=== PATIENT | female | born 1985 | race Caucasian/White ===

== ENCOUNTER 2017-10-22 03:19 | Inpatient (IN) | payer BC, OTHER ==
[2017-10-22] MEDS ORDERED: MORPHINE SULFATE 4 MG INJ IV ONE ×2 (04:01→06:49)
[2017-10-22] MEDS ORDERED: Zofran 4 MG/2 ML VIAL IV ONE (04:01)
[2017-10-22] MEDS ORDERED: Sodium Chloride 0.9% 1000 ML 1,000 ML IV STA (04:01)
[2017-10-22] MEDS ORDERED: Zofran 4 MG/2 ML VIAL ONE (04:07)
[2017-10-22] MEDS ORDERED: Sodium Chloride 0.9% 1000 ML 1,000 ML ONE (04:07)
[2017-10-22] MEDS ORDERED: MORPHINE SULFATE 4 MG INJ ONE ×2 (04:07→06:50)
--- NOTE | 2017-10-22 04:09 | ERPHSYRPT ---
- History of Present Illness Time Seen by Provider: 10/22/17 03:47 Historian: patient Exam Limitations: no limitations Patient Subjective Stated Complaint: pt states she has been having rt side abd pain for the last week, increasing tonight. Triage Nursing Assessment: pt alert and oriented, asnwers questions approp. pt ambulatory with slow stooped gait ntoed.respirations nonlabored with lungs cta. abd soft, nontender to light palpation. bowel sounds hypo. Physician History: Pt has been c/o diffuse abdominal pain, nausea x 1 week, constipated, had small bowel movement 2 days ago. She started c/o more severe pain since 1 AM today, denies vomiting, fever, chills, but developed urinary urgency and foul smelling urine. She was seen by her doctor 6 dasy ago with this problem and started her on PO Linzess. She is diabetic on Insulin pump. Timing/Duration: week(s) (1) Activities at Onset: none Quality: cramping, sharpness Abdominal Pain Onset Location: generalized abdomen Pain Radiation: back Severity of Pain-Max: severe Severity of Pain-Current: severe Modifying Factors: Improves With: nothing Associated Symptoms: nausea Previous symptoms: no prior history Allergies/Adverse Reactions: No Known Drug Allergies Allergy (Verified 10/22/17 03:38) Home Medications: Clonazepam 0.5 mg [Klonopin 0.5 MG] 0.5 mg PO TID PRN 10/22/17 [History] Duloxetine HCl [Cymbalta] 180 mg PO QAM 10/22/17 [History] Furosemide 80 mg PO QAM 10/22/17 [History] Levothyroxine Sodium [Synthroid] 175 mcg PO DAILY 10/22/17 [History] Linaclotide [Linzess] 72 mcg PO DAILY 10/22/17 [History] Meclizine HCl 25 mg [Antivert 25 mg] 25 mg PO QAM 10/22/17 [History] Methotrexate Sodium 2.5 mg [Trexall 2.5 mg] 2.5 mg PO WEEKLY 10/22/17 [ History] Metoprolol Succinate 25 mg Xl* [Toprol-Xl 25MG Tablets] 25 mg PO DAILY [History] Ondansetron [Zofran Odt] 4 mg PO QAM 10/22/17 [History] PANTOPRAZOLE 40 mg Tablet [Protonix 40MG Tablet] 40 mg PO HS 10/22/17 [ History] Potassium Chloride [K-Dur] 10 meq PO DAILY 10/22/17 [History] Pravastatin Sodium 40 mg PO HS 10/22/17 [History] Prednisone 5 mg PO QAM 10/22/17 [History] Pregabalin [Lyrica 150Mg] 150 mg PO HS 10/22/17 [History] Pregabalin [Lyrica 75 mg Cap] 75 mg PO QAM 10/22/17 [History] Tizanidine HCl 4 mg PO TID 10/22/17 [History] Trazodone HCl 25 - 50 mg PO HS PRN 10/22/17 [History] Hx Tetanus, Diphtheria Vaccination/Date Given: Yes Hx Influenza Vaccination/Date Given: No Hx Pneumococcal Vaccination/Date Given: No Immunizations Up to Date: Yes - Review of Systems Constitutional: No Symptoms Abdominal/Gastrointestinal: Abdominal Pain, Nausea, Constipation All Other Systems: Reviewed and Negative - Past Medical History Pertinent Past Medical History: Yes Neurological History: Migraines, Peripheral Neuropathy, Seizures, Other Cardiac History: Arrhythmia Respiratory History: Sleep Apnea, Other Endocrine Medical History: Diabetes Type I, Hypothyroidism Musculoskeletal History: Arthritis, Other Other Medical History: SAW DR. LYONS AFTER HER FIRST CHILD 6 YEARS AGO. HAD [facility] EARILIER IN 2017 AND HAS BILATERAL CARPAL TUNNEL. hx of lupus - Past Surgical History Past Surgical History: Yes Female Surgical History: Section - Social History Smoking Status: Former smoker Exposure to second hand smoke: Yes Drug Use: none Patient Lives Alone: No - Female History Hx Last Menstrual Period: october 09 Hx Now: No (tubal) - Nursing Vital Signs Nursing Vital Signs: Initial Vital Signs Temperature 98.4 F 10/22/17 03:25 Pulse Rate 100 H 10/22/17 03:25 Respiratory Rate 20 10/22/17 03:25 Blood Pressure 113/84 10/22/17 03:25 O2 Sat by Pulse Oximetry 95 10/22/17 03:25 Pain Scale Pain Intensity 5 - Physical Exam General Appearance: no apparent distress Eye Exam: eyes nml inspection Ears, Nose, Throat Exam: normal ENT inspection, moist mucous membranes Neck Exam: normal inspection, non-tender, supple Respiratory Exam: normal breath sounds, lungs clear, airway intact Cardiovascular Exam: regular rate/rhythm, normal heart sounds, normal peripheral pulses, No murmur Gastrointestinal/Abdomen Exam: soft, normal bowel sounds, tenderness (mod. severe RLQ), No distention, No mass, No guarding, No ecchymosis, No rebound, No organomegaly Back Exam: normal inspection, CVA tenderness (bilateral.) Extremity Exam: normal inspection, No pedal edema Neurologic Exam: alert, oriented x 3, normal mood/affect Skin Exam: normal color, warm, dry, No rash SpO2 Interpretation: normal SpO2: 95 Oxygen Delivery: Room Air - Course Nursing assessment & vital signs reviewed: Yes - CT Exams Abdomen/Pelvis CT Interpretation: Tele-radiologist Report, Other (Acute pyelonephritis) Ordered Tests: Active Orders 24 hr Category Date Time Status IV Insertion STAT Care 10/22/17 04:01 Active NPO (ED) STAT Care 10/22/17 04:01 Active ABDOMEN AND PELVIS W CONTRAST [CT] Stat Exams 10/22/17 04:39 Taken CBC W DIFF Stat Lab 10/22/17 04:22 Completed CMP Stat Lab 10/22/17 04:22 Completed CULTURE,URINE Stat Lab 10/22/17 05:46 Received HCG QUALITATIVE,SERUM Stat Lab 10/22/17 04:22 Completed LIPASE Stat Lab 10/22/17 04:22 Completed Lactic Acid Stat Lab 10/22/17 04:18 Completed UA W/ MICROSCOPIC Stat Lab 10/22/17 05:46 Completed Urine Triage Profile Stat Lab 10/22/17 05:46 Completed Medication Summary Generic Name Dose Route Start Last Admin Trade Name Freq PRN Reason Stop Dose Admin Ceftriaxone Sodium/Dextrose 1 g in 50 mls @ 100 mls/hr 10/22/17 06:39 06:45 Rocephin 1 Gm-D5w 50 Ml Bag IV 10/22/17 07:08 100 ml/hr STAT STA 100 mls/hr Administration Discontinued Medications Generic Name Dose Route Start Last Admin Trade Name Freq PRN Reason Stop Dose Admin Sodium Chloride 1,000 mls @ 999 mls/hr 10/22/17 04:01 10/22/17 06:41 Sodium Chloride 0.9% 1000 Ml IV 10/22/17 05:01 Infused .Q1H1M STA Infusion Sodium Chloride Confirm 10/22/17 04:07 Sodium Chloride 0.9% 1000 Ml Administered 10/22/17 04:08 Dose 1,000 mls @ ud .ROUTE .STK-MED ONE Ceftriaxone Sodium/Dextrose Confirm 10/22/17 06:41 Rocephin 1 Gm-D5w 50 Ml Bag Administered 10/22/17 06:42 Dose 1 g in 50 mls @ ud IV .STK-MED ONE Morphine Sulfate 4 mg 10/22/17 04:01 10/22/17 04:17 Morphine Sulfate 4 Mg Inj IV 10/22/17 04:02 4 mg STAT ONE Administration Morphine Sulfate Confirm 10/22/17 04:07 Morphine Sulfate 4 Mg Inj Administered 10/22/17 04:08 Dose 4 mg .ROUTE .STK-MED ONE Morphine Sulfate 4 mg 10/22/17 06:49 Morphine Sulfate 4 Mg Inj IV 10/22/17 06:50 NOW ONE Ondansetron HCl 4 mg 10/22/17 04:01 10/22/17 04:18 Zofran 4 Mg/2 Ml Vial IV 10/22/17 04:02 4 mg STAT ONE Administration Ondansetron HCl Confirm 10/22/17 04:07 Zofran 4 Mg/2 Ml Vial Administered 10/22/17 04:08 Dose 4 mg .ROUTE .STK-MED ONE Lab/Rad Data: Laboratory Result Diagrams 10/22/17 04:22 10/22/17 04:22 Laboratory Results 10/22/17 10/22/17 10/22/17 Range/Units 05:46 05:46 04:22 WBC (4.0-10.5) K/mm3 RBC (4.1-5.4) M/mm3 Hgb (12.0-16.0) gm/dl Hct (35-47) % MCV (78-100) fl MCH (26-32) pg MCHC (32-36) g/dl RDW (11.5-14.0) % Plt Count (150-450) K/mm3 MPV (6-9.5) fl Gran % (36.0-66.0) % Eos # (Auto) (0-0.5) Absolute Lymphs (auto) (1.0-4.6) Absolute Monos (auto) (0.0-1.3) Lymphocytes % (24.0-44.0) % Monocytes % (0.0-12.0) % Eosinophils % (0.00-5.0) % Basophils % (0.0-0.4) % Absolute Granulocytes (1.4-6.9) Basophils # (0-0.4) Sodium (137-145) mmol/L Potassium (3.5-5.1) mmol/L Chloride (98-107) mmol/L Carbon Dioxide (22-30) mmol/L Anion Gap (5-15) MEQ/L BUN (7-17) mg/dL Creatinine (0.52-1.04) mg/dL Estimated GFR ML/MIN Glucose (74-106) mg/dL Lactic Acid (0.4-2.0) Calcium (8.4-10.2) mg/dL Total Bilirubin (0.2-1.3) mg/dL AST (14-36) U/L ALT (0-35) U/L Alkaline Phosphatase (38-126) U/L Serum Total Protein (6.3-8.2) g/dL Albumin (3.5-5.0) g/dL Lipase (23-300) U/L Serum , Qual NEGATIVE (Negative) Ur Collection Type CLEAN CATCH Urine Color YELLOW (YELLOW) Urine Appearance CLOUDY (CLEAR) Urine pH 6.5 (5-6) Ur Specific [place] 1.005 (1.005-1.025) Urine Protein NEGATIVE (Negative) Urine Ketones NEGATIVE (NEGATIVE) Urine Blood 50 (0-5) Garrett/ul Urine Nitrite POSITIVE (NEGATIVE) Urine Bilirubin NEGATIVE (NEGATIVE) Urine Urobilinogen NORMAL (0-1) mg/dL Ur Leukocyte Esterase 2+ (NEGATIVE) Urine Microscopic RBC 5-10 (0-2) /HPF Urine Microscopic WBC >100 (0-5) /HPF Ur Epithelial Cells MODERATE (FEW) /HPF Urine Bacteria MANY (NEGATIVE) /HPF Urine Culture Reflexed YES (NO) Urine Glucose NEGATIVE (NEGATIVE) mg/dL Urine Opiates Level POSITIVE (NEGATIVE) Ur Methadone NEGATIVE (NEGATIVE) Urine Barbiturates NEGATIVE (NEGATIVE) Ur Phencyclidine (PCP) NEGATIVE (NEGATIVE) Urine Amphetamine NEGATIVE (NEGATIVE) U Benzodiazepine Level NEGATIVE (NEGATIVE) Urine Cocaine NEGATIVE (NEGATIVE) Urine Marijuana (THC) NEGATIVE (NEGATIVE) Specimen Received 10-22-17 0540 10/22/17 10/22/17 10/22/17 Range/Units 04:22 04:22 04:18 WBC 12.0 H (4.0-10.5) K/mm3 RBC 3.80 L (4.1-5.4) M/mm3 Hgb 12.4 (12.0-16.0) gm/dl Hct 37.1 (35-47) % MCV 97.6 (78-100) fl MCH 32.6 H (26-32) pg MCHC 33.4 (32-36) g/dl RDW 13.5 (11.5-14.0) % Plt Count 257 (150-450) K/mm3 MPV 10.3 H (6-9.5) fl Gran % 74.5 H (36.0-66.0) % Eos # (Auto) 0.09 (0-0.5) Absolute Lymphs (auto) 2.46 (1.0-4.6) Absolute Monos (auto) 0.48 (0.0-1.3) Lymphocytes % 20.5 L (24.0-44.0) % Monocytes % 4.0 (0.0-12.0) % Eosinophils % 0.8 (0.00-5.0) % Basophils % 0.2 (0.0-0.4) % Absolute Granulocytes 8.93 H (1.4-6.9) Basophils # 0.02 (0-0.4) Sodium 137 (137-145) mmol/L Potassium 3.7 (3.5-5.1) mmol/L Chloride 97 L (98-107) mmol/L Carbon Dioxide 31 H (22-30) mmol/L Anion Gap 13.1 (5-15) MEQ/L BUN 12 (7-17) mg/dL Creatinine 1.02 (0.52-1.04) mg/dL Estimated GFR > 60.0 ML/MIN Glucose 257 H (74-106) mg/dL Lactic Acid 1.0 (0.4-2.0) Calcium 9.3 (8.4-10.2) mg/dL Total Bilirubin 0.30 (0.2-1.3) mg/dL AST 14 (14-36) U/L ALT 22 (0-35) U/L Alkaline Phosphatase 152 H (38-126) U/L Serum Total Protein 7.1 (6.3-8.2) g/dL Albumin 3.8 (3.5-5.0) g/dL Lipase 15 L (23-300) U/L Serum , Qual (Negative) Ur Collection Type Urine Color (YELLOW) Urine Appearance (CLEAR) Urine pH (5-6) Ur Specific [place] (1.005-1.025) Urine Protein (Negative) Urine Ketones (NEGATIVE) Urine Blood (0-5) Garrett/ul Urine Nitrite (NEGATIVE) Urine Bilirubin (NEGATIVE) Urine Urobilinogen (0-1) mg/dL Ur Leukocyte Esterase (NEGATIVE) Urine Microscopic RBC (0-2) /HPF Urine Microscopic WBC (0-5) /HPF Ur Epithelial Cells (FEW) /HPF Urine Bacteria (NEGATIVE) /HPF Urine Culture Reflexed (NO) Urine Glucose (NEGATIVE) mg/dL Urine Opiates Level (NEGATIVE) Ur Methadone (NEGATIVE) Urine Barbiturates (NEGATIVE) Ur Phencyclidine (PCP) (NEGATIVE) Urine Amphetamine (NEGATIVE) U Benzodiazepine Level (NEGATIVE) Urine Cocaine (NEGATIVE) Urine Marijuana (THC) (NEGATIVE) Specimen Received - Progress Progress: improved Progress Note: 10/22/17 06:52 Pt improved after iv NS and Morphine, pain recurred after few hours, did not vomit, afebile, stable. I called Dr Grubbs with our results and patient's current condition, she agreed to admit her to medical bed, patient was informed , she agreed. Discussed with : Romie Will see patient in: hospital (observation) Counseled pt/family regarding: lab results, diagnosis, need for follow-up, rad results - Departure Time of Disposition: 06:53 Departure Disposition: Observation Clinical Impression: Pyelonephritis Condition: Stable Critical Care Time: No Referrals: IRENE CARR [Primary Care Provider] - Instructions: Urinary Tract Infection, Adult (DC)
[2017-10-22 04:25] LABS: BASOPHIL % 0.2 % (0.0-0.4); Basophil (Absolute #) 0.02 (0-0.4); Eosinophil % 0.8 % (0.00-5.0); Eosinophil (Absolute #) 0.09 (0-0.5); Granulocyte Absolute (ANC) 8.93 (1.4-6.9); Granulocytes % 74.5 % (36.0-66.0); Hematocrit 37.1 % (35-47); Hemoglobin 12.4 gm/dl (12.0-16.0); Lymphocyte (Absolute #) 2.46 (1.0-4.6); Lymphocytes % 20.5 % (24.0-44.0); Mean Cell Volume 97.6 fl (78-100); Mean Corpuscular Hemoglobin 32.6 pg (26-32); Mean Corpuscular Hgb Concent. 33.4 g/dl (32-36); Mean Platelet Volume 10.3 fl (6-9.5); Monocyte (Absolute #) 0.48 (0.0-1.3); Platelet Count 257 K/mm3 (150-450); Red Cell Distribution Width 13.5 % (11.5-14.0)
[2017-10-22 04:44] LABS: ALBUMIN 3.8 g/dL (3.5-5.0); ALKALINE PHOSPHATASE 152 U/L (38-126); ANION GAP 13.1 MEQ/L (5-15); BLOOD UREA NITROGEN 12 mg/dL (7-17); CHLORIDE 97 mmol/L (98-107); Calcium 9.3 mg/dL (8.4-10.2); Carbon Dioxide 31 mmol/L (22-30); Creatinine 1 1.02 mg/dL (0.52-1.04); Glucose 257 mg/dL (74-106); LIPASE 15 U/L (23-300); Potassium 3.7 mmol/L (3.5-5.1); SGOT/AST 14 U/L (14-36); SGPT/ALT 22 U/L (0-35); SODIUM 137 mmol/L (137-145); Total Protein 7.1 g/dL (6.3-8.2)
[2017-10-22 05:49] LABS: Appearance CLOUDY (CLEAR); Bilirubin NEGATIVE (NEGATIVE); Blood 50 Ery/ul (0-5); Glucose NEGATIVE (NEGATIVE); Ketones NEGATIVE (NEGATIVE); Leukocyte Esterase 2+ (NEGATIVE); Nitrite POSITIVE (NEGATIVE); Ph 6.5 (5-6); Protein,Urine Dip NEGATIVE (Negative); Specific Gravity 1.005 (1.005-1.025); Urobilinogen NORMAL mg/dL (0-1)
[2017-10-22 05:50] LABS: Bacteria MANY /HPF (NEGATIVE); Epithelial Cells MODERATE /HPF (FEW); WBC >100 /HPF (0-5)
[2017-10-22 05:56] LABS: Amphetamine,Urine NEGATIVE (NEGATIVE); Barbiturate,Urine NEGATIVE (NEGATIVE); Benzodiazepine,Urine NEGATIVE (NEGATIVE); Cocaine,Urine NEGATIVE (NEGATIVE); Methadone,Urine NEGATIVE (NEGATIVE); Opiate,Urine POSITIVE (NEGATIVE); PCP,Urine NEGATIVE (NEGATIVE); THC,Urine NEGATIVE (NEGATIVE)
[2017-10-22] MEDS ORDERED: ROCEPHIN 1 Gm-D5w 50 ml Bag** 1 G/50 ML IVPB IV STA (06:39)
[2017-10-22] MEDS ORDERED: ROCEPHIN 1 Gm-D5w 50 ml Bag** 1 G/50 ML IVPB IV ONE (06:41)
[2017-10-22] MEDS ORDERED: Zofran 4 MG/2 ML VIAL IV PRN (06:54)
[2017-10-22] MEDS ORDERED: NovoLIN R SQ PRN (07:17)
[2017-10-22] MEDS: Sodium Chloride 0.9% 1000 ML 1,000 ML IV SCH ×3 (08:24→22:01)
[2017-10-22] MEDS ORDERED: TYLENOL 325 MG PO PRN (09:09)
--- NOTE | 2017-10-22 09:47 | XRAY ---
Indication: Right flank pain. Dizziness, nausea, and constipation. Elevated WBC. Multiple contiguous axial images obtained through the abdomen and pelvis using 80 cc Isovue 370 contrast only. Comparison: None. Lung bases demonstrates mild bibasilar dependent atelectasis. No infiltrate or effusion. Heart is not enlarged. Noncontrasted stomach and bowel loops appear nonobstructed. Normal appendix. No free fluid/air. There is mild/moderate diffuse scattered colonic fecal debris throughout. Both kidneys enhance and excrete with very minimal bilateral perinephric stranding and a few tiny foci of hypoattenuations which raises the concern for infectious process such as nephritis. Mid to proximal ureters are prominent up to 15 mm in diameter with minimal thickening/enhancement favoring ureteritis. No calculus. Urinary bladder wall demonstrates minimal circumferential wall thickening either due to incomplete distention versus cystitis. Spleen is enlarged measuring 14 cm in greatest axial dimension. Remaining liver, gallbladder, pancreas, spleen, adrenal glands, kidneys, ureters, bladder, uterus, and aorta appear unremarkable. No pathologic retroperitoneal lymphadenopathy. Osseous structures intact. Impression: 1. Abnormal system as detailed favoring diffuse urine tract infection. 2. Incidental fecal stasis without obstruction and splenomegaly. Comment: Preliminary interpretation was made by [facility]. No critical discrepancy. CTDI 28.02
[2017-10-22] MEDS ORDERED: Zanaflex 4 MG PO PRN (09:55)
[2017-10-22] MEDS ORDERED: NON-FORMULARY ITEM (Levothyroxine Sodium [Synthroid] 175 MCG) PO SCH (10:00)
[2017-10-22] MEDS ORDERED: NON-FORMULARY ITEM (Potassium Chloride [K-Dur] 10 MEQ) PO SCH (10:00)
[2017-10-22] MEDS ORDERED: LASIX 20 MG PO SCH (10:00)
[2017-10-22] MEDS ORDERED: GlucaGen 1 MG IM PRN (10:30)
[2017-10-22] MEDS ORDERED: Glutose 15 GM ORAL GEL PO PRN (10:30)
[2017-10-22] MEDS ORDERED: D50W 50 ml Abboject IV PRN (10:30)
[2017-10-22] MEDS: MORPHINE SULFATE 4 MG INJ IV PRN ×3 (10:56→21:13)
[2017-10-22] MEDS: Phenergan 25 MG INJ IV PRN ×3 (10:56→21:13)
[2017-10-22] MEDS: LEVOFLOXACIN 750MG/150ML D5W 750 MG/150 ML BAG IV SCH (11:14)
--- NOTE | 2017-10-22 11:41 | XRAY ---
Indication: Right upper quadrant pain and chills. Two-dimensional gallbladder sonogram performed. Comparison: None Gallbladder normally distended without gallstones, wall thickening, or pericholecystic fluid. Common bile duct measures 3 mm. Remaining visualized portions of the liver, pancreas, and right kidney appear sonographically normal. Right kidney measures 10.8 cm in length. No ascites. Impression: Negative gallbladder sonogram.
--- NOTE | 2017-10-22 11:49 | HP ---
HISTORY OF PRESENT ILLNESS: This is a 32 year-old patient of Dr. Tinajero that presented to the emergency department this morning. She reports that she had an odor to her urine a few weeks ago and then last week started to feel worse. She has a complicated past medical history including immunosuppression due to medications used to treat he lupus from commercial photographer, Dr. Kolb. She is also diabetes type 1. She reports that through Saturday she had increased abdominal pain. She had seen Dr. Kolb who thought she was constipated and prescribed her Linzess. She reports she had a small stool on Saturday otherwise has not had a large bowel movement. She reports the pain got worse yesterday so she came to the emergency department. She reports low back pain that comes around from middle to both sides but more on the right. She states this is stabbing and twisting pain. She has had chills at night she reports but denies fever. She has also had nausea but no vomiting. She denies any increased urinary frequency and reports she has had decreased urination but she also has history of neurogenic bladder. She denies any dysuria. She reports she has been taking fluids well and has been very thirsty. She continued with the constipation. REVIEW OF SYSTEMS: As stated above in the history of present illness. PAST MEDICAL HISTORY: Neurogenic bladder. Lupus. Diabetes type 1which she controls with insulin pump. 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 She reports her diabetes is poorly controlled. Graves' disease. Fibromyalgia. Dysfunctional autonomic nervous system. Vitamin D deficiency. Depression. Anxiety. Hypothyroidism. Constipation. Hypertension. Gastroesophageal reflux disease. Migraine headache. PAST SURGICAL HISTORY: She had section x2 and cataract surgery. MEDICATIONS: Please see the home medication list which I reviewed. She reports she is on an injection called "Rasuvo" which I did not see on her home medication list. ALLERGIES: NKDA. SOCIAL HISTORY: She lives with her mother and daughter. No tobacco. No alcohol use. She is employed and works for [employer]. FAMILY HISTORY: Her mother is living and has atrial fibrillation. Her dad is living, has hypertension and hyperlipidemia. PHYSICAL EXAMINATION: VITAL SIGNS: Temperature current 98.8F, temperature max 98.8F, heart rate 84 to 100, respiratory rate 16 to 20, blood pressure 107 to 145 over 60 to 79, weight 103.1 kg. Oxygen saturation 95 to 97% on room air. GENERAL: The patient is lying in bed a pleasant talkative lady. She is having some chills otherwise in no acute distress. CVS: She is tachycardic with a regular rhythm. No murmurs, gallops or rubs are appreciated. CHEST: Clear to auscultation bilaterally. ABDOMEN: She has normal bowel sounds. She is tender throughout but mostly in the right upper and right lower quadrant. No guarding. No rigidity. EXTREMITIES: No clubbing, cyanosis or edema. SKIN: Warm, dry, intact and without rashes. BACK: She also has right costovertebral angle tenderness. LABORATORY DATA AND TESTS: White blood cell count was 12,000 with 74% granulocytes, glucose 257, alkaline phosphatase 152. Lipase was normal. Serum test negative. UA revealed greater than 100 white blood cells, many bacteria, positive nitrite. Urine tox positive for opiates. She has a urine culture in lab. CT scan was read as concern for urinary tract infection with small areas of nephritis. Please see the radiologist dictation for full report. This was from [facility] and also was reviewed with our radiologist. They denied seeing any abscesses. ASSESSMENT AND PLAN: 1) ACUTE PYELONEPHRITIS. She was started on ceftriaxone in the emergency room since she is immunosuppressed. I am going to add a second antibiotic for double coverage. We will add levofloxacin. Will continue with IV fluids. She has normal saline at 150 mm/hour. Will recheck her white blood cell count in the morning. She has morphine ordered for pain and Phenergan ordered for nausea. 2) CONSTIPATION: Will start Colace and MiraLAX. 3) LUPUS: Will try to obtain records from Dr. Kolb and confirm her current medications for the lupus. 4) DIABETES MELLITUS TYPE 1: She reports she feels comfortable managing her diabetes mellitus type 1 with her insulin pump which she states is currently working. Will order the hypoglycemic protocol if needed.
[2017-10-22] MEDS: Cymbalta 30 MG Capsule PO SCH (12:12)
[2017-10-22] MEDS: LYRICA 75 MG CAP PO SCH (12:13)
[2017-10-22] MEDS: DELTASONE 5 MG PO SCH (12:14)
[2017-10-22] MEDS: Flomax 0.4 MG PO SCH (12:15)
[2017-10-22] MEDS: SYNTHROID 100 MCG PO SCH (12:16)
[2017-10-22] MEDS: Klonopin 0.5 MG PO PRN (12:17)
[2017-10-22] MEDS: Colace 100 MG PO SCH ×2 (12:18→21:12)
[2017-10-22] MEDS: Toprol-Xl 25MG Tablets PO SCH (12:19)
[2017-10-22] MEDS: Klor Con 10 MEQ PO SCH (12:20)
[2017-10-22] MEDS: SYNTHROID 75 MCG PO SCH (12:28)
[2017-10-22] MEDS: Miralax Powder 17GM PACKET PO SCH (12:28)
[2017-10-22] MEDS: Protonix 40MG Tablet PO SCH (21:12)
[2017-10-22] MEDS: LYRICA 150MG PO SCH (21:12)
[2017-10-22] MEDS: ZOCOR 20MG PO SCH (21:12)
[2017-10-22] MEDS ORDERED: NON-FORMULARY ITEM (Pravastatin Sodium [Pravastatin Sodium] 40 MG) PO SCH (22:00)
[2017-10-22] MEDS: DESYREL 50 MG PO PRN (23:39)
[2017-10-23] MEDS: Phenergan 25 MG INJ IV PRN ×4 (04:44→22:25)
[2017-10-23] MEDS: Sodium Chloride 0.9% 1000 ML 1,000 ML IV SCH ×3 (04:44→18:56)
[2017-10-23] MEDS: MORPHINE SULFATE 4 MG INJ IV PRN ×4 (04:45→22:25)
[2017-10-23 05:49] LABS: BASOPHIL % 0.1 % (0.0-0.4); Basophil (Absolute #) 0.02 (0-0.4); Eosinophil % 0.6 % (0.00-5.0); Eosinophil (Absolute #) 0.09 (0-0.5); Hematocrit 32.6 % (35-47); Hemoglobin 10.7 gm/dl (12.0-16.0); Lymphocyte (Absolute #) 2.22 (1.0-4.6); Mean Cell Volume 99.7 fl (78-100); Mean Corpuscular Hemoglobin 32.7 pg (26-32); Mean Corpuscular Hgb Concent. 32.8 g/dl (32-36); Mean Platelet Volume 11.1 fl (6-9.5); Monocyte (Absolute #) 0.63 (0.0-1.3); Monocytes % 4.3 % (0.0-12.0); Platelet Count 238 K/mm3 (150-450); Red Blood Count 3.27 M/mm3 (4.1-5.4); Red Cell Distribution Width 13.7 % (11.5-14.0); White Blood Count 14.8 K/mm3 (4.0-10.5)
[2017-10-23 05:56] LABS: ANION GAP 11.2 MEQ/L (5-15); BLOOD UREA NITROGEN 10 mg/dL (7-17); CHLORIDE 102 mmol/L (98-107); Calcium 8.2 mg/dL (8.4-10.2); Carbon Dioxide 27 mmol/L (22-30); Creatinine 1 0.71 mg/dL (0.52-1.04); Glucose 357 mg/dL (74-106); Potassium 4.3 mmol/L (3.5-5.1); SODIUM 135 mmol/L (137-145)
--- NOTE | 2017-10-23 08:12 | PCM.NOTE ---
Date and Time: 10/23/17 08 Subjective Assessment: She reports her abdominal pain is better but still present more on the right. She has been able to drink fluids and eat. No fevers. She is on methotrexate for her lupus and would like to take this today as she is due. She reports symptoms of a vaginal yeast infection which she states she usually gets when she is on antibiotics. Dr. Kolb' notes show she is on Rasuvo (injectable methotexate). She reports she sees a beef specialist for tachycardia controlled by metoprolol and also for hx of passing out and had work up for this including a tilt table test. - Review of Systems Constitutional: No Symptoms Eyes: No Symptoms Ears, Nose, & Throat: No Symptoms Respiratory: No Symptoms Cardiac: No Symptoms Abdominal/Gastrointestinal: Abdominal Pain Genitourinary Symptoms: No Symptoms Musculoskeletal: No Symptoms Objective Exam General Appearance: no apparent distress, alert Neurologic Exam: alert, cooperative, normal mood/affect Skin Exam: normal color, warm, dry, No rash Respiratory Exam: normal breath sounds, lungs clear, No crackles/rales, No rhonchi, No wheezing Cardiovascular Exam: regular rate/rhythm, normal heart sounds, No murmur, No friction rub, No gallop Gastrointestinal/Abdomen Exam: soft, normal bowel sounds, other (mild right upper quadrant and right lower quadrant tenderness, no guarding, norigidity) Extremity Exam: other (no c/c/e) OBJECTIVE DATA Vital Signs: Vital Signs - 24 hr Temp Pulse Resp BP Pulse Ox 10/23/17 07:47 97.7 F 72 18 92/54 94 L 10/23/17 04:00 97.6 F 78 17 97/54 92 L 10/22/17 23:39 97.9 F 71 16 109/68 98 10/22/17 19:44 97.8 F 77 16 103/70 95 10/22/17 15:51 98.2 F 89 18 99/63 95 10/22/17 11:30 98.3 F 105 H 18 106/54 94 L Pain Assessment - Last Documented Pain Intensity 0 Pain Scale Used 0-10 Pain Scale Intake and Output: Intake & Output 10/21/17 10/22/17 10/23/17 10/24/17 06:59 06:59 06:59 06:59 Intake Total 4859 Output Total 3000 Balance 1859 Weight 103.873 kg 103.1 kg Lab Results: Accuchecks Date 10/23/17 Date 10/22/17 Date 10/22/17 Date 10/22/17 Time 07:31 Time 21:30 Time 16:49 Time 11:30 Accucheck Value: 346 Accucheck Value: 234 Accucheck Value: 195 Accucheck Value: 236 Lab Results-Last 24 Hours 10/22/17 10/23/17 10/23/17 Range/Units 05:00 05:30 05:30 WBC 14.8 H (4.0-10.5) K/mm3 RBC 3.27 L (4.1-5.4) M/mm3 Hgb 10.7 L (12.0-16.0) gm/dl Hct 32.6 L (35-47) % MCV 99.7 (78-100) fl MCH 32.7 H (26-32) pg MCHC 32.8 (32-36) g/dl RDW 13.7 (11.5-14.0) % Plt Count 238 (150-450) K/mm3 MPV 11.1 H (6-9.5) fl Gran % 80.0 H (36.0-66.0) % Eos # (Auto) 0.09 (0-0.5) Absolute Lymphs (auto) 2.22 (1.0-4.6) Absolute Monos (auto) 0.63 (0.0-1.3) Lymphocytes % 15.0 L (24.0-44.0) % Monocytes % 4.3 (0.0-12.0) % Eosinophils % 0.6 (0.00-5.0) % Basophils % 0.1 (0.0-0.4) % Absolute Granulocytes 11.80 H (1.4-6.9) Basophils # 0.02 (0-0.4) Sodium 135 L (137-145) mmol/L Potassium 4.3 (3.5-5.1) mmol/L Chloride 102 (98-107) mmol/L Carbon Dioxide 27 (22-30) mmol/L Anion Gap 11.2 (5-15) MEQ/L BUN 10 (7-17) mg/dL Creatinine 0.71 (0.52-1.04) mg/dL Estimated GFR > 60.0 ML/MIN Glucose 357 H (74-106) mg/dL Hemoglobin A1c 8.58 H (4.5-6.0) % Calcium 8.2 L (8.4-10.2) mg/dL Radiology Exams: Radiology Procedures Category Date Time Status ABDOMEN AND PELVIS W CONTRAST [CT] Stat Exams 10/22/17 04:39 Completed Ultrasound Gallbladder [GALLBLADDER] [US] Urgent Exams 10/22/17 10:21 Completed Assessment/Plan (1) Acute pyelonephritis Current Visit: Yes Status: Acute Assessment & Plan: Continue ceftriaxone and levofloxacin. Await urine culture results. She has been afebrile. Clinically she is improving. Her WBC is a little bit higher but she is doing better clinically. Continue to monitor closely. Code(s): N10 - ACUTE PYELONEPHRITIS (2) Constipation Current Visit: Yes Status: Acute Assessment & Plan: Continue docusate and miralax. Code(s): K59.00 - CONSTIPATION, UNSPECIFIED (3) Lupus (systemic lupus erythematosus) Current Visit: Yes Status: Acute Assessment & Plan: Continue with her home dose of methotexate. Code(s): M32.9 - SYSTEMIC LUPUS ERYTHEMATOSUS, UNSPECIFIED (4) Type I diabetes mellitus Current Visit: Yes Status: Acute Qualifiers: Diabetes mellitus complication status: with hyperglycemia Qualified Code(s) : E10.65 - Type 1 diabetes mellitus with hyperglycemia Assessment & Plan: Continue insulin pump. She will need to follow up with her Assistant At [facility]. She reports she has missed her last 2 appointments.
[2017-10-23] MEDS ORDERED: DIFLUCAN PO ONE (08:15)
[2017-10-23] MEDS: SYNTHROID 100 MCG PO SCH (08:38)
[2017-10-23] MEDS: SYNTHROID 75 MCG PO SCH (08:38)
[2017-10-23] MEDS: Klor Con 10 MEQ PO SCH (08:38)
[2017-10-23] MEDS: Miralax Powder 17GM PACKET PO SCH (08:39)
[2017-10-23] MEDS: LYRICA 75 MG CAP PO SCH (08:39)
[2017-10-23] MEDS: Colace 100 MG PO SCH ×2 (08:39→22:12)
[2017-10-23] MEDS: Flomax 0.4 MG PO SCH (08:39)
[2017-10-23] MEDS: Cymbalta 30 MG Capsule PO SCH (08:39)
[2017-10-23] MEDS: DELTASONE 5 MG PO SCH (08:39)
[2017-10-23] MEDS: ROCEPHIN 1 Gm-D5w 50 ml Bag** 1 G/50 ML IVPB IV SCH (08:40)
[2017-10-23] MEDS: Toprol-Xl 25MG Tablets PO SCH (08:53)
[2017-10-23] MEDS ORDERED: VITAMIN D2 PO SCH (10:00)
[2017-10-23] MEDS ORDERED: TREXALL 2.5 MG PO SCH (10:00)
[2017-10-23] MEDS ORDERED: PATIENT OWN MEDICATION IJ SCH (10:00)
[2017-10-23] MEDS: LEVOFLOXACIN 750MG/150ML D5W 750 MG/150 ML BAG IV SCH (10:02)
[2017-10-23] MEDS: DESYREL 50 MG PO PRN (22:12)
[2017-10-23] MEDS: Protonix 40MG Tablet PO SCH (22:12)
[2017-10-23] MEDS: ZOCOR 20MG PO SCH (22:12)
[2017-10-23] MEDS: LYRICA 150MG PO SCH (22:12)
[2017-10-23] MEDS: Klonopin 0.5 MG PO PRN (22:12)
[2017-10-24] MEDS: Sodium Chloride 0.9% 1000 ML 1,000 ML IV SCH ×2 (02:14→10:34)
[2017-10-24] MEDS: Miralax Powder 17GM PACKET PO SCH (09:01)
[2017-10-24] MEDS: ROCEPHIN 1 Gm-D5w 50 ml Bag** 1 G/50 ML IVPB IV SCH (09:01)
[2017-10-24] MEDS: LYRICA 75 MG CAP PO SCH (09:02)
[2017-10-24] MEDS: Flomax 0.4 MG PO SCH (09:02)
[2017-10-24] MEDS: Klor Con 10 MEQ PO SCH (09:02)
[2017-10-24] MEDS: DELTASONE 5 MG PO SCH (09:02)
[2017-10-24] MEDS: SYNTHROID 100 MCG PO SCH (09:02)
[2017-10-24] MEDS: Toprol-Xl 25MG Tablets PO SCH (09:02)
[2017-10-24] MEDS: Cymbalta 30 MG Capsule PO SCH (09:02)
[2017-10-24] MEDS: Colace 100 MG PO SCH (09:02)
[2017-10-24] MEDS: SYNTHROID 75 MCG PO SCH (09:02)
[2017-10-24] MEDS: MORPHINE SULFATE 4 MG INJ IV PRN (09:11)
[2017-10-24] MEDS: Phenergan 25 MG INJ IV PRN (09:11)
[2017-10-24] MEDS: LEVOFLOXACIN 750MG/150ML D5W 750 MG/150 ML BAG IV SCH (09:44)
[2017-10-24] MEDS ORDERED: NORCO 5/325 MG PO PRN (09:53)
[2017-10-24] MEDS ORDERED: SENOKOT 8.6 MG PO PRN (09:54)
--- NOTE | 2017-10-24 10:02 | PCM.NOTE ---
Date and Time: 10/24/17957 Subjective Assessment: She reports that yesterday her right flank started hurting more and she has had more nausea. She is requiring IV pain medication and phenergan for nausea. She reports a small stool yesterday but still feels constipated. She would like to go home,but she is still having pain. - Review of Systems Constitutional: No Symptoms Respiratory: No Symptoms Cardiac: No Symptoms Abdominal/Gastrointestinal: Abdominal Pain, Nausea, Constipation, No Vomiting, No Diarrhea Genitourinary Symptoms: No Symptoms Musculoskeletal: No Symptoms Skin: No Symptoms Objective Exam General Appearance: no apparent distress, alert Neurologic Exam: alert, cooperative, normal mood/affect Skin Exam: normal color, warm, dry, No rash Respiratory Exam: normal breath sounds, lungs clear, No crackles/rales, No rhonchi, No wheezing Cardiovascular Exam: regular rate/rhythm, normal heart sounds, No murmur, No friction rub, No gallop Gastrointestinal/Abdomen Exam: soft, normal bowel sounds, tenderness, other ( mild tenderness left lower quadrant, right upper quadrant, + right costovertebral angle tenderness, no left costovertebral angle tenderness), No distention, No mass, No guarding Extremity Exam: other (no c/c/e) OBJECTIVE DATA Vital Signs: Vital Signs - 24 hr Temp Pulse Resp BP Pulse Ox 10/24/17 07:12 98.0 F 84 16 120/74 93 L 10/24/17 05:15 110/70 10/24/17 04:00 97.6 F 80 15 94/58 92 L 10/24/17 00:00 98.0 F 84 17 120/78 96 10/23/17 19:30 98.1 F 74 18 131/87 96 10/23/17 15:42 97.7 F 71 18 131/80 93 L 10/23/17 11:52 98.3 F 92 H 18 122/84 96 Pain Assessment - Last Documented Pain Intensity 4 Pain Scale Used 0-10 Pain Scale Intake and Output: Intake & Output 10/22/17 10/23/17 10/24/17 10/25/17 06:59 06:59 06:59 06:59 Intake Total 4859 2705 120 Output Total 3000 1000 Balance 1859 1705 120 Weight 103.873 kg 103.1 kg Lab Results: Accuchecks Date 10/23/17 Date 10/23/17 Date 10/23/17 Date 10/23/17 Time 22:10 Time 21:30 Time 16:09 Time 12:16 Accucheck Value: 119 Accucheck Value: 216 Accucheck Value: 320 Accucheck Value: 340 Accucheck Value: 349 Radiology Exams: Radiology Procedures Category Date Time Status Renal Ultrasound [KIDNEY] [US] Routine Exams 10/24/17 Ordered Ultrasound Gallbladder [GALLBLADDER] [US] Urgent Exams 10/22/17 10:21 Completed Assessment/Plan (1) Acute pyelonephritis Current Visit: Yes Status: Acute Assessment & Plan: Urine culture came back growing E. Coli susceptible to both levofloxacin and ceftriaxone. Stop levofloxacin today and continue ceftriaxone. If she is discharged, will plan to discharge on cefdinir to finish a 10 day course of antibiotics. Will check renal US today. Will try to transition to oral pain medication. Code(s): N10 - ACUTE PYELONEPHRITIS (2) Constipation Current Visit: Yes Status: Acute Assessment & Plan: continue docusate and miralax and add senna today. Code(s): K59.00 - CONSTIPATION, UNSPECIFIED (3) Lupus (systemic lupus erythematosus) Current Visit: Yes Status: Acute Assessment & Plan: Stable on her home medication. 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
--- NOTE | 2017-10-24 10:54 | XRAY ---
Indication: Pyelonephritis. Two-dimensional renal sonogram performed. Comparison: None Both kidneys normal in reniform shape with normal color perfusion. Right kidney measures 11.2 x 5.6 x 5.0 cm and the left measures 12.3 x 6.0 x 5.3 cm. No solid/cystic mass or hydronephrosis. Cortical medullary differentiation preserved without cortical thinning. Images of the urinary bladder sonographically normal with normal bilateral ureteral jets. Impression: Negative renal sonogram.
[2017-10-24 11:43] LABS: BASOPHIL % 0.3 % (0.0-0.4); Basophil (Absolute #) 0.03 (0-0.4); Eosinophil % 1.3 % (0.00-5.0); Eosinophil (Absolute #) 0.15 (0-0.5); Granulocyte Absolute (ANC) 8.93 (1.4-6.9); Hematocrit 35.5 % (35-47); Hemoglobin 11.8 gm/dl (12.0-16.0); Lymphocyte (Absolute #) 2.18 (1.0-4.6); Lymphocytes % 18.6 % (24.0-44.0); Mean Cell Volume 97.8 fl (78-100); Mean Corpuscular Hemoglobin 32.5 pg (26-32); Mean Corpuscular Hgb Concent. 33.2 g/dl (32-36); Mean Platelet Volume 10.3 fl (6-9.5); Monocyte (Absolute #) 0.44 (0.0-1.3); Monocytes % 3.8 % (0.0-12.0); Platelet Count 301 K/mm3 (150-450); Red Blood Count 3.63 M/mm3 (4.1-5.4); Red Cell Distribution Width 13.8 % (11.5-14.0); White Blood Count 11.7 K/mm3 (4.0-10.5)
[2017-10-24 12:01] LABS: ANION GAP 13.7 MEQ/L (5-15); BLOOD UREA NITROGEN 8 mg/dL (7-17); CHLORIDE 104 mmol/L (98-107); Calcium 8.8 mg/dL (8.4-10.2); Carbon Dioxide 28 mmol/L (22-30); Creatinine 1 0.73 mg/dL (0.52-1.04); Glucose 164 mg/dL (74-106); Potassium 3.8 mmol/L (3.5-5.1); SODIUM 143 mmol/L (137-145)
[2017-10-24 12:37] VITALS: BP 138/98; PULSE 77; O2SAT 95
== END 2017-10-24 15:05 | disposition home or self-care (01) | DRG 690 ==
LOC: ED 03:19 → MED SURG 07:29 → OBSVTOIN 09:00
PROVIDERS: ADMIT Internal Medicine; ATTEND Internal Medicine
DX: N10 Acute pyelonephritis (principal); K59.00 Constipation, unspecified; M32.9 Systemic lupus erythematosus, unspecified; E10.65 Type 1 diabetes mellitus with hyperglycemia
CPT/HCPCS: 36000; 36415; 74177; 76705; 76770; 80048; 80053; 80307; 81000; 82962; 83036; 83605; 83690; 84703; 85025; 87077; 87086; 87186; 96360; 96365; 96374; 96375; 96376; 99285; J0696; J1956; J2270; J2405; J2550; A9270-GY

== ENCOUNTER 2017-12-29 14:10 | Emergency (ER) | payer OTHER ==
--- NOTE | 2017-12-29 14:40 | ERPHSYRPT ---
- History of Present Illness Time Seen by Provider: 12/29/17 14:29 Source: patient Exam Limitations: no limitations Physician History: The patient is a 32-year-old female with her complaining of a worsening red mildly painful rash on her left side of the neck that has spread to the right side of her neck. The rash began about 2 weeks ago on the left side. Around the time that the rash started, she also started taking Macrobid for UTI. She has stopped the Macrobid one week ago the rash has continued to worsen. The past medical history is significant for lupus, Graves' disease, diabetes, tachycardia, and GERD. Timing/Duration: week(s) (2), gradual onset, worse Quality: burning, itchy Severity: moderate Location: neck Possible Causes: no cause identified Associated Symptoms: rash Allergies/Adverse Reactions: No Known Drug Allergies Allergy (Verified 10/22/17 03:38) Home Medications: Clonazepam 0.5 mg [Klonopin 0.5 MG] 0.5 mg PO TID PRN 10/22/17 [History] Duloxetine HCl [Cymbalta] 120 mg PO QAM 10/22/17 [History] Ergocalciferol (Vitamin D2) [Vitamin D2] 50,000 unit PO Q7D 10/22/17 [History] Furosemide 20 mg PO DAILY 10/22/17 [History] Insulin Lispro [Humalog] 100 unit SQ ACHS 10/22/17 [History] Levothyroxine Sodium [Synthroid] 175 mcg PO DAILY 10/22/17 [History] Meclizine HCl 25 mg [Antivert 25 mg] 25 mg PO QAM 10/22/17 [History] Methotrexate Sodium 2.5 mg [Trexall 2.5 mg] 17.5 mg IM WEEKLY 10/22/17 [ History] Metoprolol Succinate 25 mg Xl* [Toprol-Xl 25MG Tablets] 25 mg PO DAILY [History] Ondansetron [Zofran Odt] 4 mg PO QAM 10/22/17 [History] PANTOPRAZOLE 40 mg Tablet [Protonix 40MG Tablet] 40 mg PO HS 10/22/17 [ History] Potassium Chloride [K-Dur] 10 meq PO DAILY 10/22/17 [History] Pravastatin Sodium 40 mg PO HS 10/22/17 [History] Pregabalin [Lyrica 150Mg] 150 mg PO HS 10/22/17 [History] Pregabalin [Lyrica 75 mg Cap] 75 mg PO QAM 10/22/17 [History] Rizatriptan Benzoate [Rizatriptan] 15 mg PO Q4H PRN 10/22/17 [History] Tamsulosin HCl 0.4 mg [Flomax 0.4 MG] 0.4 mg PO DAILY 10/22/17 [History] Tizanidine HCl 4 mg PO TID PRN 10/22/17 [History] Trazodone HCl 25 - 50 mg PO HS PRN 10/22/17 [History] Hx Tetanus, Diphtheria Vaccination/Date Given: Yes Hx Influenza Vaccination/Date Given: No Hx Pneumococcal Vaccination/Date Given: No - Review of Systems Constitutional: No Fever, No Chills Eyes: No Symptoms Ears, Nose, & Throat: No Symptoms Respiratory: No Cough, No Dyspnea Cardiac: No Chest Pain, No Edema, No Syncope Abdominal/Gastrointestinal: No Abdominal Pain, No Nausea, No Vomiting, No Diarrhea Genitourinary Symptoms: No Dysuria Musculoskeletal: No Back Pain, No Neck Pain Skin: Rash Neurological: No Dizziness, No Focal Weakness, No Sensory Changes Psychological: No Symptoms Endocrine: No Symptoms Hematologic/Lymphatic: No Symptoms Immunological/Allergic: No Symptoms All Other Systems: Reviewed and Negative - Past Medical History Pertinent Past Medical History: Yes Neurological History: Migraines, Peripheral Neuropathy, Seizures, Other Cardiac History: Arrhythmia Respiratory History: Sleep Apnea, Other Endocrine Medical History: Diabetes Type I, Hypothyroidism Musculoskeletal History: Arthritis, Other Other Medical History: SAW DR. LYONS AFTER HER FIRST CHILD 6 YEARS AGO. HAD EMG EARILIER IN 2017 AND HAS BILATERAL CARPAL TUNNEL. hx of lupus. fibromyalgia , peripheral vascular disease, autonomic nervous system disorder - Past Surgical History Past Surgical History: Yes Female Surgical History: Section - Social History Smoking Status: Former smoker Exposure to second hand smoke: Yes Drug Use: none Patient Lives Alone: No - Physical Exam General Appearance: no apparent distress, alert Eye Exam: PERRL/EOMI, eyes nml inspection Ears, Nose, Throat Exam: normal ENT inspection, pharynx normal, moist mucous membranes Neck Exam: normal inspection, non-tender, supple, full range of motion Respiratory Exam: normal breath sounds, lungs clear, No respiratory distress Cardiovascular Exam: regular rate/rhythm, normal heart sounds Gastrointestinal/Abdomen Exam: soft, mass, No tenderness Pelvic Exam: not done Rectal Exam: not done Back Exam: normal inspection, normal range of motion, No CVA tenderness, No vertebral tenderness Extremity Exam: normal inspection, normal range of motion Neurologic Exam: alert, oriented x 3, cooperative, normal mood/affect, sensation nml, No motor deficits Skin Exam: rash (The rash on the left side of the neck is a confluence red slightly raised rash with satellite lesions at the perimeter. The rash on the right side of the neck is much smaller and consists of a few discrete red macules.) SpO2 Interpretation: normal Oxygen Delivery: Room Air - Departure Time of Disposition: 14:46 Departure Disposition: Home Clinical Impression: Rash Condition: Stable Critical Care Time: No Referrals: IRENE CARR [Primary Care Provider] - Additional Instructions: You have a rash on both sides of her neck that we will treat with both an antifungal, anti-bacterial, and steroid. Apply the nystatin cream 2 times a day for 7 days to the area. Take Keflex 500 mg 4 times a day for 10 days. You were given Toradol 60 mg IM in the ER. Follow-up with your primary medical doctor after 2-3 days if no improvement. Prescriptions: Cephalexin Mh 500 mg [Keflex 500 mg] 1 cap PO QID #40 capsule Nystatin/Triamcin [Nystatin-Triamcinolone Cream] 1 gm TP BID #30 cream..g.
[2017-12-29] MEDS ORDERED: TORAdol 30 mg Injection IM ONE (14:46)
[2017-12-29] MEDS ORDERED: TORAdol 30 mg Injection ONE (14:49)
[2017-12-29 15:03] VITALS: BP 152/92; PULSE 85; O2SAT 98
== END 2017-12-29 15:02 | disposition home or self-care (01) ==
LOC: ED 14:10
DX: R21 Rash and other nonspecific skin eruption (principal); Z79.899 Other long term (current) drug therapy
CPT/HCPCS: 96372; 99283; J1885

== ENCOUNTER 2018-04-11 11:13 | Emergency (ER) | payer MEDICAID, OTHER ==
--- NOTE | 2018-04-11 12:35 | ERPHSYRPT ---
- History of Present Illness Time Seen by Provider: 04/11/18 12:29 Source: patient Exam Limitations: no limitations Patient Subjective Stated Complaint: Pt states "I have been off my methotrexate for the past two months and my headaches are getting worse for the past two weeks. I have a neurologist at [facility] but I cannot get in for awhile and I think I am having another UTI." Triage Nursing Assessment: Pt alert and oriented X 3, skin pwd. Pt squinting agaist the light, moaning. PT ambulates with an upright steady gait, able to speak in clear full sentences. Pt in no apparent respiratory distress. Physician History: The patient is a 32-year-old female complaining of a migraine headache for 2 weeks that has now been worse for the past 4 days. For the last 4 days she has been nauseated and has vomited. The headache is behind her eyes. She sometimes will see spots. She doesn't have any new numbness or tingling. She has lupus and quit taking methotrexate 2 months ago because she didn't think it was helping. She had not been having any headaches while she was on methotrexate. Now her headache has begun and she started the methotrexate 2 days ago. She has no local doctor. Her neurologist is in [place] and she can't drive up there. Her local doctor is in [place]. Her past medical history is significant for migraine headaches, DM, lupus, graves disease, and fibromyalgia. Timing/Duration: week(s) (2), gradual onset, worse Quality: sharpness Head Pain Location: frontal Severity of Pain-Max: severe Severity of Pain-Current: severe Recent Head Trauma: chronic headaches Modifying Factors: Improves With: noise Associated Symptoms: nausea/vomiting, sensitive to light Previous symptoms: same symptoms as today Allergies/Adverse Reactions: No Known Drug Allergies Allergy (Verified 10/22/17 03:38) Home Medications: Clonazepam 0.5 mg [Klonopin 0.5 MG] 0.5 mg PO TID PRN 10/22/17 [History] Duloxetine HCl [Cymbalta] 120 mg PO QAM 10/22/17 [History] Ergocalciferol (Vitamin D2) [Vitamin D2] 50,000 unit PO Q7D 10/22/17 [History] Furosemide 20 mg PO DAILY 10/22/17 [History] Insulin Lispro [Humalog] 100 unit SQ ACHS 10/22/17 [History] Levothyroxine Sodium [Synthroid] 175 mcg PO DAILY 10/22/17 [History] Meclizine HCl 25 mg [Antivert 25 mg] 25 mg PO QAM 10/22/17 [History] Methotrexate Sodium 2.5 mg [Trexall 2.5 mg] 17.5 mg IM WEEKLY 10/22/17 [ History] Metoprolol Succinate 25 mg Xl* [Toprol-Xl 25MG Tablets] 25 mg PO DAILY [History] Ondansetron [Zofran Odt] 4 mg PO QAM 10/22/17 [History] PANTOPRAZOLE 40 mg Tablet [Protonix 40MG Tablet] 40 mg PO HS 10/22/17 [ History] Potassium Chloride [K-Dur] 10 meq PO DAILY 10/22/17 [History] Pravastatin Sodium 40 mg PO HS 10/22/17 [History] Pregabalin [Lyrica 150Mg] 150 mg PO HS 10/22/17 [History] Pregabalin [Lyrica 75 mg Cap] 75 mg PO QAM 10/22/17 [History] Rizatriptan Benzoate [Rizatriptan] 15 mg PO Q4H PRN 10/22/17 [History] Tamsulosin HCl 0.4 mg [Flomax 0.4 MG] 0.4 mg PO DAILY 10/22/17 [History] Tizanidine HCl 4 mg PO TID PRN 10/22/17 [History] Trazodone HCl 25 - 50 mg PO HS PRN 10/22/17 [History] Hx Tetanus, Diphtheria Vaccination/Date Given: Yes Hx Influenza Vaccination/Date Given: Yes Hx Pneumococcal Vaccination/Date Given: No Immunizations Up to Date: Yes - Review of Systems Constitutional: No Fever, No Chills Eyes: No Symptoms Ears, Nose, & Throat: No Symptoms Respiratory: No Cough, No Dyspnea Cardiac: No Chest Pain, No Edema, No Syncope Abdominal/Gastrointestinal: Nausea, Vomiting, No Abdominal Pain, No Diarrhea Genitourinary Symptoms: No Dysuria Musculoskeletal: No Back Pain, No Neck Pain Skin: No Rash Neurological: Headache Psychological: No Symptoms Endocrine: No Symptoms Hematologic/Lymphatic: No Symptoms Immunological/Allergic: No Symptoms All Other Systems: Reviewed and Negative - Past Medical History Pertinent Past Medical History: Yes Neurological History: Migraines, Peripheral Neuropathy, Seizures, Other Cardiac History: Arrhythmia Respiratory History: Sleep Apnea, Other Endocrine Medical History: Diabetes Type I, Hypothyroidism Musculoskeletal History: Arthritis, Other Other Medical History: SAW DR. LYONS AFTER HER FIRST CHILD 6 YEARS AGO. HAD EMG EARILIER IN 2017 AND HAS BILATERAL CARPAL TUNNEL. hx of lupus. fibromyalgia , peripheral vascular disease, autonomic nervous system disorder - Past Surgical History Past Surgical History: Yes Female Surgical History: Section - Social History Smoking Status: Current every day smoker How long have you smoked: years Exposure to second hand smoke: Yes Drug Use: marijuana Patient Lives Alone: No - Female History Hx Last Menstrual Period: 03/23/2018 Hx Now: No - Nursing Vital Signs Nursing Vital Signs: Initial Vital Signs Temperature 98.1 F 04/11/18 11:28 Pulse Rate 72 04/11/18 11:28 Respiratory Rate 16 04/11/18 11:28 Blood Pressure 115/79 04/11/18 11:28 O2 Sat by Pulse Oximetry 95 04/11/18 11:28 Pain Scale Pain Intensity 10 - Physical Exam General Appearance: moderate distress, obese Eye Exam: PERRL/EOMI, photophobia Ears, Nose, Throat Exam: normal ENT inspection, moist mucous membranes Neck Exam: normal inspection, supple, full range of motion, No meningismus Respiratory Exam: normal breath sounds, lungs clear Cardiovascular Exam: regular rate/rhythm, normal heart sounds Gastrointestinal/Abdominal Exam: soft, No tenderness, No distention Back Exam: normal inspection, normal range of motion Extremity Exam: normal inspection Mental Status Exam: alert, oriented x 3, cooperative Coordination/Gait Exam: normal cerebellar function Motor/Sensory Exam: no motor deficit, no sensory deficit Skin Exam: normal color, warm, dry, No rash SpO2 Interpretation: normal SpO2: 98 Oxygen Delivery: Room Air Ordered Tests: Active Orders 24 hr Category Date Time Status IV Insertion STAT Care 04/11/18 12:44 Active Medication Summary Discontinued Medications Generic Name Dose Route Start Last Admin Trade Name Freq PRN Reason Stop Dose Admin Diphenhydramine HCl 50 mg 04/11/18 12:44 04/11/18 13:12 Benadryl 50 Mg/Ml IV 04/11/18 12:45 50 mg STAT ONE Administration Diphenhydramine HCl Confirm 04/11/18 13:07 Benadryl 50 Mg/Ml Administered 04/11/18 13:08 Dose 50 mg .ROUTE .STK-MED ONE Sodium Chloride 1,000 mls @ 999 mls/hr 04/11/18 12:44 04/11/18 13:11 Sodium Chloride 0.9% 1000 Ml IV 04/11/18 13:44 999 mls/hr .Q1H1M STA Administration Sodium Chloride Confirm 04/11/18 13:07 Sodium Chloride 0.9% 1000 Ml Administered 04/11/18 13:08 Dose 1,000 mls @ ud .ROUTE .STK-MED ONE Prochlorperazine Edisylate 10 mg 04/11/18 12:44 04/11/18 13:12 Compazine 10 Mg/2 Ml IV 04/11/18 12:45 10 mg STAT ONE Administration Prochlorperazine Edisylate Confirm 04/11/18 13:07 Compazine 10 Mg/2 Ml Administered 04/11/18 13:08 Dose 10 mg .ROUTE .STK-MED ONE Sumatriptan Succinate 6 mg 04/11/18 12:45 04/11/18 13:12 Imitrex 6 Mg/0.5 Ml SQ 04/11/18 12:46 6 mg STAT STA Administration Sumatriptan Succinate Confirm 04/11/18 13:07 Imitrex 6 Mg/0.5 Ml Administered 04/11/18 13:08 Dose 6 mg SQ .STK-MED ONE - Progress Progress: improved Air Movement: good Progress Note: 04/11/18 14:17 After Compazine 10 mg, Benadryl 50 mg, and fluids by IV and Imitrex 6 mg subcutaneous, the patient is feeling much better. Blood Culture(s) Obtained: No Antibiotics given: No Counseled pt/family regarding: diagnosis - Departure Time of Disposition: 14:17 Departure Disposition: Home Clinical Impression: Headache Condition: Stable Critical Care Time: No Referrals: IRENE CARR [Primary Care Provider] - Additional Instructions: You have a headache that was treated with Imitrex 6 mg subcutaneous, Compazine 10 mg, Benadryl 50 mg, and fluids by IV in the ER. Go home and rest in a dark room and stay well hydrated. Follow-up with your neurologist.
[2018-04-11] MEDS ORDERED: Imitrex 6 MG/0.5 ML SQ ONE (13:07)
[2018-04-11] MEDS ORDERED: Compazine 10 MG/2 ML ONE (13:07)
[2018-04-11] MEDS ORDERED: BENADRYL 50 MG/ML ONE (13:07)
[2018-04-11] MEDS ORDERED: Sodium Chloride 0.9% 1000 ML 1,000 ML ONE (13:07)
[2018-04-11] MEDS: Sodium Chloride 0.9% 1000 ML 1,000 ML IV STA (13:11)
[2018-04-11] MEDS: Imitrex 6 MG/0.5 ML SQ STA (13:12)
[2018-04-11] MEDS: Compazine 10 MG/2 ML IV ONE (13:12)
[2018-04-11] MEDS: BENADRYL 50 MG/ML IV ONE (13:12)
[2018-04-11 14:19] VITALS: O2SAT 98
[2018-04-11 14:21] VITALS: BP 102/71; PULSE 55
== END 2018-04-11 14:34 | disposition home or self-care (01) ==
LOC: ED 11:13
DX: R51 Headache (principal); G62.9 Polyneuropathy, unspecified; G40.909 Epilepsy, unspecified, not intractable, without status epilepticus; G47.30 Sleep apnea, unspecified; E10.9 Type 1 diabetes mellitus without complications; Z79.4 Long term (current) use of insulin; E03.9 Hypothyroidism, unspecified; M19.90 Unspecified osteoarthritis, unspecified site; M79.7 Fibromyalgia; I73.9 Peripheral vascular disease, unspecified; Z72.0 Tobacco use
CPT/HCPCS: 36000; 96360; 96372; 96374; 96375; 99284; J1200; J3030

== ENCOUNTER 2019-09-28 14:16 | Emergency (ER) | payer OTHER ==
--- NOTE | 2019-09-28 14:22 | ERPHSYRPT ---
- History of Present Illness Time Seen by Provider: 09/28/19 14:22 Source: patient Exam Limitations: no limitations Physician History: This is a 34-year-old insulin-dependent white female who has an insulin pump in place who presents with fatigue, weakness, nausea vomiting and dizziness. Patient states that she has had vomiting intermittently for the last 2 to 3 months. She has been worked up for gastroparesis. However her symptoms have been worsened in the last 2 days. Patient's physician is in [facility]. There was ketones in her urine and she had a high blood sugar of over 400. Just prior to coming into the emergency department her blood sugar was 320 per her measurement. Patient has mild shortness of breath. She has no chest pain she has no abdominal pain. Timing/Duration: day(s) (Worse in the last 2 days), intermittent, worse Severity: moderate Associated Symptoms: nausea, vomiting, shortness of breath, weakness, No abdominal pain, No diaphoresis, No chest pain, No fever Allergies/Adverse Reactions: No Known Drug Allergies Allergy (Verified 09/28/19 14:24) Home Medications: Clonazepam 0.5 mg [Klonopin 0.5 MG] 0.5 mg PO TID PRN 10/22/17 [History] Duloxetine HCl [Cymbalta] 120 mg PO QAM 10/22/17 [History] Ergocalciferol (Vitamin D2) [Vitamin D2] 50,000 unit PO Q7D 10/22/17 [History] Furosemide 20 mg PO DAILY 10/22/17 [History] Insulin Lispro [Humalog] 100 unit SQ ACHS 10/22/17 [History] Levothyroxine Sodium [Synthroid] 175 mcg PO DAILY 10/22/17 [History] Meclizine HCl 25 mg [Antivert 25 mg] 25 mg PO QAM 10/22/17 [History] Methotrexate Sodium 2.5 mg [Trexall 2.5 mg] 17.5 mg IM WEEKLY 10/22/17 [History] Metoprolol Succinate 25 mg Xl* [Toprol-Xl 25MG Tablets] 25 mg PO DAILY 10/22/17 [History] Ondansetron [Zofran Odt] 4 mg PO QAM 10/22/17 [History] PANTOPRAZOLE 40 mg Tablet [Protonix 40MG Tablet] 40 mg PO HS 10/22/17 [History] Potassium Chloride [K-Dur] 10 meq PO DAILY 10/22/17 [History] Pravastatin Sodium 40 mg PO HS 10/22/17 [History] Pregabalin [Lyrica 150Mg] 150 mg PO HS 10/22/17 [History] Pregabalin [Lyrica 75 mg Cap] 75 mg PO QAM 10/22/17 [History] Rizatriptan Benzoate [Rizatriptan] 15 mg PO Q4H PRN 10/22/17 [History] Tamsulosin HCl 0.4 mg [Flomax 0.4 MG] 0.4 mg PO DAILY 10/22/17 [History] Tizanidine HCl 4 mg PO TID PRN 10/22/17 [History] Trazodone HCl 25 - 50 mg PO HS PRN 10/22/17 [History] Hx Tetanus, Diphtheria Vaccination/Date Given: Yes Hx Influenza Vaccination/Date Given: Yes Hx Pneumococcal Vaccination/Date Given: No Travel Risk - International Travel Have you traveled outside of the country in past 3 weeks: No - Coronavirus Screening Symptoms: Shortness of Breath, Vomiting/Diarrhea Close contact with a COVID-19 positive Pt in past 14-21 Days: No - Review of Systems Constitutional: Weakness Eyes: No Symptoms Ears, Nose, & Throat: No Symptoms Respiratory: Dyspnea (Mild), No Cough Cardiac: No Symptoms, No Chest Pain Abdominal/Gastrointestinal: Nausea, Vomiting Genitourinary Symptoms: No Symptoms Musculoskeletal: No Symptoms Skin: No Symptoms Neurological: No Symptoms Psychological: No Symptoms Endocrine: No Symptoms Hematologic/Lymphatic: No Symptoms Immunological/Allergic: No Symptoms All Other Systems: Reviewed and Negative - Past Medical History Pertinent Past Medical History: Yes Neurological History: Migraines, Peripheral Neuropathy, Seizures, Other Cardiac History: Arrhythmia Respiratory History: Sleep Apnea, Other Endocrine Medical History: Diabetes Type I, Hypothyroidism Musculoskeletal History: Arthritis, Other Other Medical History: SAW DR. LYONS AFTER HER FIRST CHILD 6 YEARS AGO. HAD EMG EARILIER IN 2017 AND HAS BILATERAL CARPAL TUNNEL. hx of lupus. fibromyalgia, peripheral vascular disease, autonomic nervous system disorder - Past Surgical History Past Surgical History: Yes Female Surgical History: Section - Social History Smoking Status: Current every day smoker How long have you smoked: years Exposure to second hand smoke: Yes Drug Use: marijuana Patient Lives Alone: No - Nursing Vital Signs Nursing Vital Signs: Initial Vital Signs Temperature 98.4 F 09/28/19 14:24 Pulse Rate 103 H 09/28/19 14:24 Respiratory Rate 18 09/28/19 14:24 Blood Pressure 134/97 09/28/19 14:24 O2 Sat by Pulse Oximetry 97 09/28/19 14:24 Pain Scale Pain Intensity 0 - Physical Exam General Appearance: mild distress, alert, anxiety Eye Exam: PERRL/EOMI, eyes nml inspection Ears, Nose, Throat Exam: normal ENT inspection, moist mucous membranes Neck Exam: normal inspection, non-tender, supple, full range of motion Respiratory Exam: normal breath sounds, lungs clear, airway intact, No chest tenderness, No respiratory distress Cardiovascular Exam: regular rate/rhythm, normal heart sounds, normal peripheral pulses Gastrointestinal/Abdomen Exam: soft, normal bowel sounds, No tenderness Pelvic Exam: not done Rectal Exam: not done Back Exam: normal inspection, normal range of motion, No CVA tenderness, No vertebral tenderness Extremity Exam: normal inspection, normal range of motion, pelvis stable Neurologic Exam: alert, oriented x 3, cooperative, day spa manager II-XII nml as tested, nml cerebellar function, nml station & gait, sensation nml Skin Exam: normal color, warm, dry Lymphatic Exam: No adenopathy SpO2 Interpretation: normal O2 Delivery: Room Air - Course Nursing assessment & vital signs reviewed: Yes Ordered Tests: Active Orders 24 hr Category Date Time Status IV Insertion STAT Care 09/28/19 14:33 Active CBC W DIFF Stat Lab 09/28/19 14:38 Completed CMP Stat Lab 09/28/19 14:38 Completed Lactic Acid Urgent Lab 09/28/19 14:42 Completed MAGNESIUM Stat Lab 09/28/19 14:38 Completed T4 (Thyroxine) Stat Lab 09/28/19 14:38 Completed TSH, 3RD Generation Stat Lab 09/28/19 14:38 Completed UA W/RFX UR CULTURE Stat Lab 09/28/19 14:20 Completed Medication Summary Generic Name Dose Route Start Last Admin Trade Name Freq PRN Reason Stop Dose Admin Sodium Chloride 1,000 mls @ 999 mls/hr 09/28/19 15:50 09/28/19 16:01 Sodium Chloride 0.9% 1000 Ml IV 09/28/19 16:50 999 mls/hr .Q1H1M STA Administration Discontinued Medications Generic Name Dose Route Start Last Admin Trade Name Ascencion PRN Reason Stop Dose Admin Sodium Chloride 1,000 mls @ 999 mls/hr 09/28/19 14:33 09/28/19 15:46 Sodium Chloride 0.9% 1000 Ml IV 09/28/19 15:33 Infused .Q1H1M STA Infusion Sodium Chloride Confirm 09/28/19 14:38 Sodium Chloride 0.9% 1000 Ml Administered 09/28/19 14:39 Dose 1,000 mls @ ud .ROUTE .STK-MED ONE Sodium Chloride Confirm 09/28/19 15:58 Sodium Chloride 0.9% 1000 Ml Administered 09/28/19 15:59 Dose 1,000 mls @ ud .ROUTE .STK-MED ONE Insulin Human Regular 5 unit 09/28/19 15:51 09/28/19 16:00 Humulin R IV 09/28/19 15:52 5 unit STAT ONE Administration Insulin Human Regular Confirm 09/28/19 15:57 Humulin R Administered 09/28/19 15:58 Dose 5 unit .ROUTE .STK-MED ONE Ondansetron HCl 4 mg 09/28/19 14:33 09/28/19 14:42 Zofran 4 Mg/2 Ml Vial IV 09/28/19 14:34 4 mg STAT ONE Administration Ondansetron HCl Confirm 09/28/19 14:38 Zofran 4 Mg/2 Ml Vial Administered 09/28/19 14:39 Dose 4 mg .ROUTE .STK-MED ONE Lab/Rad Data: Laboratory Result Diagrams 09/28/19 14:38 09/28/19 14:38 Laboratory Results 09/28/19 09/28/19 09/28/19 Range/Units 14:42 14:38 14:38 WBC 9.1 (4.0-10.5) K/mm3 RBC 4.04 L (4.1-5.4) M/mm3 Hgb 13.6 (12.0-16.0) gm/dl Hct 39.7 (35-47) % MCV 98.3 (78-100) fl MCH 33.7 H (26-32) pg MCHC 34.3 (32-36) g/dl RDW 12.2 (11.5-14.0) % Plt Count 265 (150-450) K/mm3 MPV 12.1 H (7.5-11.0) fl Gran % 74.9 H (36.0-66.0) % Eos # (Auto) 0.06 (0-0.5) Absolute Lymphs (auto) 1.76 (1.0-4.6) Absolute Monos (auto) 0.44 (0.0-1.3) Lymphocytes % 19.3 L (24.0-44.0) % Monocytes % 4.8 (0.0-12.0) % Eosinophils % 0.7 (0.00-5.0) % Basophils % 0.3 (0.0-0.4) % Absolute Granulocytes 6.81 (1.4-6.9) Basophils # 0.03 (0-0.4) Sodium 136 L (137-145) mmol/L Potassium 4.1 (3.5-5.1) mmol/L Chloride 102 (98-107) mmol/L Carbon Dioxide 23 (22-30) mmol/L Anion Gap 14.3 (5-15) MEQ/L BUN 11 (7-17) mg/dL Creatinine 0.68 (0.52-1.04) mg/dL Estimated GFR > 60.0 ML/MIN Glucose 317 H (74-106) mg/dL Lactic Acid 1.3 (0.4-2.0) Calcium 9.5 (8.4-10.2) mg/dL Magnesium 1.7 (1.6-2.3) mg/dL Total Bilirubin 0.80 (0.2-1.3) mg/dL AST 24 (14-36) U/L ALT 16 (0-35) U/L Alkaline Phosphatase 105 (38-126) U/L Serum Total Protein 8.0 (6.3-8.2) g/dL Albumin 4.5 (3.5-5.0) g/dL Thyroxine (T4) 16.8 H (5.53-10.96) ug/dL TSH 3rd Generation 2.360 (0.47-4.68) mIU/L Urine Color (YELLOW) Urine Appearance (CLEAR) Urine pH (5-6) Ur Specific [place] (1.005-1.025) Urine Protein (Negative) Urine Ketones (NEGATIVE) Urine Blood (0-5) Garrett/ul Urine Nitrite (NEGATIVE) Urine Bilirubin (NEGATIVE) Urine Urobilinogen (0-1) mg/dL Ur Leukocyte Esterase (NEGATIVE) Urine WBC (Auto) (0-5) /HPF Urine RBC (Auto) (0-2) /HPF U Hyaline Cast (Auto) (0-2) /LPF U Epithel Cells (Auto) (FEW) /HPF Urine Bacteria (Auto) (NEGATIVE) /HPF Urine Mucus (Auto) (NEGATIVE) /HPF Urine Culture Reflexed (NO) Urine Glucose (NEGATIVE) mg/dL Slides for Path Review YES 09/28/19 Range/Units 14:20 WBC (4.0-10.5) K/mm3 RBC (4.1-5.4) M/mm3 Hgb (12.0-16.0) gm/dl Hct (35-47) % MCV (78-100) fl MCH (26-32) pg MCHC (32-36) g/dl RDW (11.5-14.0) % Plt Count (150-450) K/mm3 MPV (7.5-11.0) fl Gran % (36.0-66.0) % Eos # (Auto) (0-0.5) Absolute Lymphs (auto) (1.0-4.6) Absolute Monos (auto) (0.0-1.3) Lymphocytes % (24.0-44.0) % Monocytes % (0.0-12.0) % Eosinophils % (0.00-5.0) % Basophils % (0.0-0.4) % Absolute Granulocytes (1.4-6.9) Basophils # (0-0.4) Sodium (137-145) mmol/L Potassium (3.5-5.1) mmol/L Chloride (98-107) mmol/L Carbon Dioxide (22-30) mmol/L Anion Gap (5-15) MEQ/L BUN (7-17) mg/dL Creatinine (0.52-1.04) mg/dL Estimated GFR ML/MIN Glucose (74-106) mg/dL Lactic Acid (0.4-2.0) Calcium (8.4-10.2) mg/dL Magnesium (1.6-2.3) mg/dL Total Bilirubin (0.2-1.3) mg/dL AST (14-36) U/L ALT (0-35) U/L Alkaline Phosphatase (38-126) U/L Serum Total Protein (6.3-8.2) g/dL Albumin (3.5-5.0) g/dL Thyroxine (T4) (5.53-10.96) ug/dL TSH 3rd Generation (0.47-4.68) mIU/L Urine Color JOSE DE JESUS (YELLOW) Urine Appearance SLIGHTLY CLOUDY (CLEAR) Urine pH 5.0 (5-6) Ur Specific [place] 1.028 (1.005-1.025) Urine Protein 30 (Negative) Urine Ketones MODERATE (NEGATIVE) Urine Blood NEGATIVE (0-5) Garrett/ul Urine Nitrite NEGATIVE (NEGATIVE) Urine Bilirubin NEGATIVE (NEGATIVE) Urine Urobilinogen 2 (0-1) mg/dL Ur Leukocyte Esterase NEGATIVE (NEGATIVE) Urine WBC (Auto) 3-5 (0-5) /HPF Urine RBC (Auto) 0-2 (0-2) /HPF U Hyaline Cast (Auto) 0-2 (0-2) /LPF U Epithel Cells (Auto) FEW (FEW) /HPF Urine Bacteria (Auto) NONE (NEGATIVE) /HPF Urine Mucus (Auto) SLIGHT (NEGATIVE) /HPF Urine Culture Reflexed NO (NO) Urine Glucose >=500 (NEGATIVE) mg/dL Slides for Path Review - Progress Progress: improved, re-examined Progress Note: 09/28/19 16:49 Medical decision making: This patient has vomiting and dehydration. She has ketones in her urine. She also has an elevated blood sugar. By definition she has DKA. She also has elevated thyroxine (T4) level. I want to place this patient in observation. However, there are no beds available at this time at our hospital. I called the hospital of patient's choice to be transferred to which was [facility]. I spoke with a doctor Juan who was a hospitalist electronic equipment trades worker. She accepts the patient in transfer. Counseled pt/family regarding: lab results, diagnosis - Departure Departure Disposition: Home Clinical Impression: DKA (diabetic ketoacidoses), Vomiting, Elevated serum free T4 level Condition: Stable Critical Care Time: Yes Critical Care Time(excluding separately billable procedures): Critical 30-74 mins Referrals: IRENE CARR [Primary Care Provider] -
[2019-09-28] MEDS ORDERED: Zofran 4 MG/2 ML VIAL IV ONE (14:33)
[2019-09-28] MEDS ORDERED: Sodium Chloride 0.9% 1000 ML 1,000 ML IV STA ×2 (14:33→15:50)
[2019-09-28] MEDS ORDERED: Sodium Chloride 0.9% 1000 ML 1,000 ML ONE ×2 (14:38→15:58)
[2019-09-28] MEDS ORDERED: Zofran 4 MG/2 ML VIAL ONE (14:38)
[2019-09-28 14:56] LABS: Absolute Neutrophil Ct (ANC) 6.81 (1.4-6.9); BASOPHIL % 0.3 % (0.0-0.4); Basophil (Absolute #) 0.03 (0-0.4); Eosinophil % 0.7 % (0.00-5.0); Eosinophil (Absolute #) 0.06 (0-0.5); Hematocrit 39.7 % (35-47); Hemoglobin 13.6 gm/dl (12.0-16.0); Lymphocyte (Absolute #) 1.76 (1.0-4.6); Lymphocytes % 19.3 % (24.0-44.0); Mean Cell Volume 98.3 fl (78-100); Mean Corpuscular Hemoglobin 33.7 pg (26-32); Mean Corpuscular Hgb Concent. 34.3 g/dl (32-36); Mean Platelet Volume 12.1 fl (7.5-11.0); Monocyte (Absolute #) 0.44 (0.0-1.3); Monocytes % 4.8 % (0.0-12.0); Neutrophil % 74.9 % (36.0-66.0); Platelet Count 265 K/mm3 (150-450); Red Blood Count 4.04 M/mm3 (4.1-5.4); Red Cell Distribution Width 12.2 % (11.5-14.0); White Blood Count 9.1 K/mm3 (4.0-10.5)
[2019-09-28 14:58] LABS: Appearance SLIGHTLY CLOUDY (CLEAR); Bilirubin NEGATIVE (NEGATIVE); Blood NEGATIVE Ery/ul (0-5); Epithelial Cells FEW /HPF (FEW); Glucose >=500 mg/dL (NEGATIVE); Hyaline Casts 0-2 /LPF (0-2); Ketones MODERATE (NEGATIVE); Leukocyte Esterase NEGATIVE (NEGATIVE); Mucus SLIGHT /HPF (NEGATIVE); Nitrite NEGATIVE (NEGATIVE); Protein,Urine Dip 30 (Negative); RBC 0-2 /HPF (0-2); Specific Gravity 1.028 (1.005-1.025); Urobilinogen 2 mg/dL (0-1)
[2019-09-28 15:29] LABS: Slide Review 1 YES
[2019-09-28 15:36] LABS: ALBUMIN 4.5 g/dL (3.5-5.0); ALKALINE PHOSPHATASE 105 U/L (38-126); ANION GAP 14.3 MEQ/L (5-15); BLOOD UREA NITROGEN 11 mg/dL (7-17); CHLORIDE 102 mmol/L (98-107); Calcium 9.5 mg/dL (8.4-10.2); Carbon Dioxide 23 mmol/L (22-30); Creatinine 1 0.68 mg/dL (0.52-1.04); Glucose 317 mg/dL (74-106); MAGNESIUM 1.7 mg/dL (1.6-2.3); Potassium 4.1 mmol/L (3.5-5.1); SGOT/AST 24 U/L (14-36); SGPT/ALT 16 U/L (0-35); SODIUM 136 mmol/L (137-145); T4 (Thyroxine) 16.8 ug/dL (5.53-10.96)
[2019-09-28] MEDS ORDERED: HUMULIN R IV ONE (15:51)
[2019-09-28] MEDS ORDERED: HUMULIN R ONE (15:57)
[2019-09-28 17:14] VITALS: BP 116/79; PULSE 75; O2SAT 98
== END 2019-09-28 18:43 | disposition short-term general hospital (02) ==
LOC: ED 14:16
DX: E10.10 Type 1 diabetes mellitus with ketoacidosis without coma (principal); R11.10 Vomiting, unspecified; R74.8 Abnormal levels of other serum enzymes; E86.0 Dehydration; R42 Dizziness and giddiness; G40.909 Epilepsy, unspecified, not intractable, without status epilepticus; E03.9 Hypothyroidism, unspecified; G47.30 Sleep apnea, unspecified
CPT/HCPCS: 36000; 36415; 80053; 81001; 82962; 83605; 83735; 84436; 84443; 85025; 96360; 96361; 96374; 96375; 99285; 99291; J1815; J2405

== ENCOUNTER 2019-10-11 15:28 | Observation (INO) | payer OTHER ==
[2019-10-11] MEDS ORDERED: Sodium Chloride 0.9% 1000 ML 1,000 ML IV STA ×2 (15:35→17:08)
[2019-10-11] MEDS ORDERED: Sodium Chloride 0.9% 1000 ML 1,000 ML ONE ×2 (15:39→17:11)
[2019-10-11 16:05] LABS: Hemoglobin 15.6 gm/dl (12.0-16.0); Mean Cell Volume 98.1 fl (78-100); Mean Corpuscular Hemoglobin 33.3 pg (26-32); Mean Corpuscular Hgb Concent. 33.9 g/dl (32-36); Mean Platelet Volume 12.5 fl (7.5-11.0); Platelet Count 326 K/mm3 (150-450); Red Blood Count 4.69 M/mm3 (4.1-5.4); Red Cell Distribution Width 12.1 % (11.5-14.0); White Blood Count 13.4 K/mm3 (4.0-10.5)
[2019-10-11 16:18] LABS: ALBUMIN 4.9 g/dL (3.5-5.0); ALKALINE PHOSPHATASE 103 U/L (38-126); ANION GAP 16.2 MEQ/L (5-15); BLOOD UREA NITROGEN 10 mg/dL (7-17); CHLORIDE 106 mmol/L (98-107); Calcium 10.4 mg/dL (8.4-10.2); Carbon Dioxide 21 mmol/L (22-30); Creatinine 1 0.66 mg/dL (0.52-1.04); Glucose 115 mg/dL (74-106); Potassium 4.6 mmol/L (3.5-5.1); SGOT/AST 27 U/L (14-36); SGPT/ALT 14 U/L (0-35); SODIUM 139 mmol/L (137-145); Total Protein 8.9 g/dL (6.3-8.2)
[2019-10-11 16:29] LABS: BAND 1 % (0.0-2.0); Lymphocytes 9 % (24-44); Monocyte 4 % (0.0-12.0); Neutrophils 86 % (36.0-66.0); Platelet Estimate NORMAL (NORMAL); Total Cells Counted 100
--- NOTE | 2019-10-11 16:58 | ERPHSYRPT ---
- History of Present Illness Time Seen by Provider: 10/11/19 16:56 Source: patient, family Exam Limitations: no limitations Patient Subjective Stated Complaint: Pt c/o of pain over entire body, shivering, hx of lupus, rash on left side of chin, pt feels symptoms are exacerbation of lupus Triage Nursing Assessment: Pt brought here by her boyfriend, pt crying and shaking, vitals wnl, skin is clammy, blood sugar normal, wears an insulin pump, dizzy, weak, pulses normal, last intake 10/10/2019, last bm 4 days ago, rtes overall pain as 12/16 Physician History: Pt c/o of pain over entire body, shivering, hx of lupus, rash on left side of chin, pt feels symptoms are exacerbation of lupus, c/o0 loss of appetite, hasnot ate anything for 2 days Timing/Duration: day(s) Fever Severity: moderate Fever Therapy RUBBER OFF: Acetaminophen Associated Symptoms: headache, muscle aches, rash, sore throat, weakness, No nausea/vomiting Allergies/Adverse Reactions: No Known Drug Allergies Allergy (Verified 10/11/19 15:44) Home Medications: Duloxetine HCl [Cymbalta] 120 mg PO QAM 10/22/17 [History] Ergocalciferol (Vitamin D2) [Vitamin D2] 50,000 unit PO Q7D 10/22/17 [History] Insulin Lispro [Humalog] 100 unit SQ ACHS 10/22/17 [History] Trazodone HCl 25 - 50 mg PO HS PRN 10/22/17 [History] Dextroamphetamine/Amphetamine [Adderall 20 mg Tablet] 1 tab PO DAILY 09/28/19 [History] Levothyroxine Sodium 100 Mcg [Synthroid 100 Mcg] 1 tab PO DAILY 09/28/19 [History] Levothyroxine Sodium 150 Mcg [Synthroid 150 Mcg] 1 tab PO DAILY 09/28/19 [History] Metoclopramide HCl 10 mg [Reglan 10 MG] 1 tab PO TID 09/28/19 [History] Hx Tetanus, Diphtheria Vaccination/Date Given: Yes Hx Influenza Vaccination/Date Given: Yes Hx Pneumococcal Vaccination/Date Given: No Travel Risk - International Travel Have you traveled outside of the country in past 3 weeks: No - Coronavirus Screening Are you exhibiting any of the following symptoms?: Yes Symptoms: Fever, Loss of Taste or Smell, Headaches/Body Aches/Fatigue Close contact with a COVID-19 positive Pt in past 14-21 Days: No - Review of Systems Constitutional: Fever, Chills, Malaise, Weakness Eyes: No Symptoms Ears, Nose, & Throat: No Symptoms Respiratory: No Cough, No Dyspnea Cardiac: No Chest Pain, No Edema, No Syncope Abdominal/Gastrointestinal: No Abdominal Pain, No Nausea, No Vomiting, No Diarrhea Genitourinary Symptoms: No Dysuria Musculoskeletal: No Back Pain, No Neck Pain Skin: No Rash Neurological: No Dizziness, No Focal Weakness, No Sensory Changes Psychological: No Symptoms Endocrine: No Symptoms All Other Systems: Reviewed and Negative - Past Medical History Pertinent Past Medical History: Yes Neurological History: Migraines, Peripheral Neuropathy, Seizures, Other Cardiac History: Arrhythmia Respiratory History: Sleep Apnea, Other Endocrine Medical History: Diabetes Type I, Hypothyroidism Musculoskeletal History: Arthritis, Other GI Medical History: No Pertinent History History: No Pertinent History Other Medical History: SAW DR. LYONS AFTER HER FIRST CHILD 6 YEARS AGO. HAD EMG EARILIER IN 2017 AND HAS BILATERAL CARPAL TUNNEL. hx of lupus. fibromyalgia, peripheral vascular disease, autonomic nervous system disorder - Past Surgical History Past Surgical History: Yes Neuro Surgical History: No Pertinent History Cardiac: No Pertinent History Respiratory: No Pertinent History Gastrointestinal: No Pertinent History Genitourinary: No Pertinent History Musculoskeletal: No Pertinent History Female Surgical History: Section - Social History Smoking Status: Former smoker How long have you smoked: years Exposure to second hand smoke: Yes Drug Use: marijuana Patient Lives Alone: No - Female History Hx Last Menstrual Period: 09/2019 Hx Now: No - Nursing Vital Signs Nursing Vital Signs: Initial Vital Signs Temperature 98.2 F 10/11/19 15:31 Pulse Rate 86 10/11/19 15:31 Blood Pressure 128/91 10/11/19 15:31 O2 Sat by Pulse Oximetry 100 10/11/19 15:31 Pain Scale Pain Intensity 9 - Physical Exam General Appearance: moderate distress, alert Eye Exam: PERRL/EOMI ENT Exam: normal ENT inspection, pharyngeal erythema, No tonsillar exudate Neck Exam: supple, full range of motion, No meningismus Respiratory Exam: normal breath sounds, lungs clear, no respiratory distress Cardiovascular/Chest Exam: normal heart sounds, regular rate/rhythm, No murmur, No edema Gastrointestinal/Abdominal Exam: soft, non tender, no distention Extremity Exam: non-tender, normal range of motion, normal inspection, normal capillary refill Neurologic Exam: alert, oriented x 3, cooperative, saw edge fuser circular II-XII nml as tested, normal mood/affect, sensation nml, No motor deficits Skin Exam: normal color, warm, dry, rash (malar rash) SpO2: 99 - Course Nursing assessment & vital signs reviewed: Yes Ordered Tests: Active Orders 24 hr Category Date Time Status Accucheck STAT Care 10/11/19 15:35 Active IV Insertion STAT Care 10/11/19 15:35 Active Pulse Oximetry (ED) STAT Care 10/11/19 15:47 Active CHEST 2 VIEWS (PA AND LAT) Stat Exams 10/11/19 15:36 Taken BLOOD CULTURE Stat Lab 10/11/19 15:50 Received CBC W DIFF Stat Lab 10/11/19 15:45 Completed CMP Stat Lab 10/11/19 15:45 Completed CULTURE,URINE Stat Lab 10/11/19 17:15 Received Lactic Acid Stat Lab 10/11/19 15:35 Completed Manual Differential NC Stat Lab 10/11/19 15:45 Completed UA W/RFX UR CULTURE Stat Lab 10/11/19 17:15 Completed Medication Summary Generic Name Dose Route Start Last Admin Trade Name Freq PRN Reason Stop Dose Admin Sodium Chloride 1,000 mls @ 999 mls/hr 10/11/19 17:08 10/11/19 17:12 Sodium Chloride 0.9% 1000 Ml IV 10/11/19 18:08 999 mls/hr .Q1H1M STA Administration Ceftriaxone Sodium/Dextrose 1 g in 50 mls @ 100 mls/hr 10/11/19 18:06 Rocephin 1 Gm-D5w 50 Ml Bag IV 10/11/19 18:35 STAT STA Discontinued Medications Generic Name Dose Route Start Last Admin Trade Name Freq PRN Reason Stop Dose Admin Sodium Chloride 1,000 mls @ 999 mls/hr 10/11/19 15:35 10/11/19 16:43 Sodium Chloride 0.9% 1000 Ml IV 10/11/19 16:35 Infused .Q1H1M STA Infusion Sodium Chloride Confirm 10/11/19 15:39 Sodium Chloride 0.9% 1000 Ml Administered 10/11/19 15:40 Dose 1,000 mls @ ud .ROUTE .STK-MED ONE Sodium Chloride Confirm 10/11/19 17:11 Sodium Chloride 0.9% 1000 Ml Administered 10/11/19 17:12 Dose 1,000 mls @ ud .ROUTE .STK-MED ONE Ketorolac Tromethamine 30 mg 10/11/19 17:08 10/11/19 17:13 Toradol 30 Mg Injection IV 10/11/19 17:09 30 mg STAT ONE Administration Ketorolac Tromethamine Confirm 10/11/19 17:11 Toradol 30 Mg Injection Administered 10/11/19 17:12 Dose 30 mg .ROUTE .STK-MED ONE Lab/Rad Data: Laboratory Result Diagrams 10/11/19 15:45 10/11/19 15:45 Laboratory Results 10/11/19 10/11/19 10/11/19 Range/Units 17:15 15:45 15:45 WBC 13.4 H (4.0-10.5) K/mm3 RBC 4.69 (4.1-5.4) M/mm3 Hgb 15.6 (12.0-16.0) gm/dl Hct 46.0 (35-47) % MCV 98.1 (78-100) fl MCH 33.3 H (26-32) pg MCHC 33.9 (32-36) g/dl RDW 12.1 (11.5-14.0) % Plt Count 326 (150-450) K/mm3 MPV 12.5 H (7.5-11.0) fl Segmented Neutrophils 86 H (36.0-66.0) % Band Neutrophils 1 (0.0-2.0) % Lymphocytes (Manual) 9 L (24-44) % Monocytes (Manual) 4 (0.0-12.0) % Platelet Estimate NORMAL (NORMAL) RBC Morphology NORMAL Sodium 139 (137-145) mmol/L Potassium 4.6 (3.5-5.1) mmol/L Chloride 106 (98-107) mmol/L Carbon Dioxide 21 L (22-30) mmol/L Anion Gap 16.2 H (5-15) MEQ/L BUN 10 (7-17) mg/dL Creatinine 0.66 (0.52-1.04) mg/dL Estimated GFR > 60.0 ML/MIN Glucose 115 H (74-106) mg/dL Lactic Acid (0.4-2.0) Calcium 10.4 H (8.4-10.2) mg/dL Total Bilirubin 1.00 (0.2-1.3) mg/dL AST 27 (14-36) U/L ALT 14 (0-35) U/L Alkaline Phosphatase 103 (38-126) U/L Serum Total Protein 8.9 H (6.3-8.2) g/dL Albumin 4.9 (3.5-5.0) g/dL Urine Color YELLOW (YELLOW) Urine Appearance SLIGHTLY CLOUDY (CLEAR) Urine pH 7.0 (5-6) Ur Specific [place] 1.012 (1.005-1.025) Urine Protein NEGATIVE (Negative) Urine Ketones MODERATE (NEGATIVE) Urine Blood NEGATIVE (0-5) Garrett/ul Urine Nitrite NEGATIVE (NEGATIVE) Urine Bilirubin NEGATIVE (NEGATIVE) Urine Urobilinogen NEGATIVE (0-1) mg/dL Ur Leukocyte Esterase SMALL (NEGATIVE) Urine WBC (Auto) 26-50 (0-5) /HPF Urine RBC (Auto) NONE (0-2) /HPF U Epithel Cells (Auto) RARE (FEW) /HPF Urine Bacteria (Auto) FEW (NEGATIVE) /HPF Urine Mucus (Auto) SLIGHT (NEGATIVE) /HPF Urine Culture Reflexed ORDERED SEPARATELY (NO) Urine Glucose NEGATIVE (NEGATIVE) mg/dL 10/11/19 Range/Units 15:35 WBC (4.0-10.5) K/mm3 RBC (4.1-5.4) M/mm3 Hgb (12.0-16.0) gm/dl Hct (35-47) % MCV (78-100) fl MCH (26-32) pg MCHC (32-36) g/dl RDW (11.5-14.0) % Plt Count (150-450) K/mm3 MPV (7.5-11.0) fl Segmented Neutrophils (36.0-66.0) % Band Neutrophils (0.0-2.0) % Lymphocytes (Manual) (24-44) % Monocytes (Manual) (0.0-12.0) % Platelet Estimate (NORMAL) RBC Morphology Sodium (137-145) mmol/L Potassium (3.5-5.1) mmol/L Chloride (98-107) mmol/L Carbon Dioxide (22-30) mmol/L Anion Gap (5-15) MEQ/L BUN (7-17) mg/dL Creatinine (0.52-1.04) mg/dL Estimated GFR ML/MIN Glucose (74-106) mg/dL Lactic Acid 1.6 (0.4-2.0) Calcium (8.4-10.2) mg/dL Total Bilirubin (0.2-1.3) mg/dL AST (14-36) U/L ALT (0-35) U/L Alkaline Phosphatase (38-126) U/L Serum Total Protein (6.3-8.2) g/dL Albumin (3.5-5.0) g/dL Urine Color (YELLOW) Urine Appearance (CLEAR) Urine pH (5-6) Ur Specific [place] (1.005-1.025) Urine Protein (Negative) Urine Ketones (NEGATIVE) Urine Blood (0-5) Garrett/ul Urine Nitrite (NEGATIVE) Urine Bilirubin (NEGATIVE) Urine Urobilinogen (0-1) mg/dL Ur Leukocyte Esterase (NEGATIVE) Urine WBC (Auto) (0-5) /HPF Urine RBC (Auto) (0-2) /HPF U Epithel Cells (Auto) (FEW) /HPF Urine Bacteria (Auto) (NEGATIVE) /HPF Urine Mucus (Auto) (NEGATIVE) /HPF Urine Culture Reflexed (NO) Urine Glucose (NEGATIVE) mg/dL - Progress Progress: unchanged Discussed with Dr.: Kelley Counseled pt/family regarding: lab results, diagnosis, need for follow-up, rad results - Departure Departure Disposition: Observation Clinical Impression: Pyelonephritis Lupus (systemic lupus erythematosus) Qualifiers: Systemic lupus erythematosus type: unspecified Systemic lupus erythematosus or james involvement: unspecified Qualified Code(s): M32.9 - Systemic lupus erythematosus, unspecified Condition: Fair Critical Care Time: Yes Critical Care Time(excluding separately billable procedures): Critical 30-74 mins Referrals: IRENE CARR [Primary Care Provider] -
[2019-10-11] MEDS ORDERED: TORAdol 30 mg Injection IV ONE (17:08)
[2019-10-11] MEDS ORDERED: TORAdol 30 mg Injection ONE (17:11)
[2019-10-11 17:40] LABS: Appearance SLIGHTLY CLOUDY (CLEAR); Bacteria FEW /HPF (NEGATIVE); Bilirubin NEGATIVE (NEGATIVE); Blood NEGATIVE Ery/ul (0-5); Epithelial Cells RARE /HPF (FEW); Glucose NEGATIVE (NEGATIVE); Ketones MODERATE (NEGATIVE); Leukocyte Esterase SMALL (NEGATIVE); Mucus SLIGHT /HPF (NEGATIVE); Nitrite NEGATIVE (NEGATIVE); Protein,Urine Dip NEGATIVE (Negative); Specific Gravity 1.012 (1.005-1.025); Urobilinogen NEGATIVE mg/dL (0-1); WBC 26-50 /HPF (0-5)
[2019-10-11] MEDS ORDERED: ROCEPHIN 1 Gm-D5w 50 ml Bag** 1 G/50 ML IVPB IV STA (18:06)
[2019-10-11] MEDS ORDERED: ROCEPHIN 1 Gm-D5w 50 ml Bag** 1 G/50 ML IVPB IV ONE (18:14)
[2019-10-11] MEDS ORDERED: Sodium Chloride 0.9% 1000 ML 1,000 ML IV SCH (19:24)
[2019-10-11] MEDS: TYLENOL 325 MG PO PRN (19:34)
[2019-10-11] MEDS ORDERED: DESYREL 50 MG PO ONE (19:54)
--- NOTE | 2019-10-11 21:45 | XRAY ---
Indication: Short of breath, weakness, and chills. Comparison: None PA/lateral chest demonstrates normal heart, lungs, and bony thorax.
[2019-10-11] MEDS ORDERED: DESYREL 50 MG PO SCH (22:00)
[2019-10-11] MEDS: NORCO 5/325 MG PO PRN (22:02)
[2019-10-12] MEDS: NORCO 5/325 MG PO PRN ×4 (04:53→21:23)
[2019-10-12 05:13] LABS: Absolute Neutrophil Ct (ANC) 5.15 (1.4-6.9); BASOPHIL % 0.4 % (0.0-0.4); Basophil (Absolute #) 0.04 (0-0.4); Eosinophil % 1.3 % (0.00-5.0); Eosinophil (Absolute #) 0.12 (0-0.5); Hematocrit 34.3 % (35-47); Hemoglobin 11.3 gm/dl (12.0-16.0); Lymphocyte (Absolute #) 3.36 (1.0-4.6); Lymphocytes % 35.4 % (24.0-44.0); Mean Cell Volume 101.8 fl (78-100); Mean Corpuscular Hemoglobin 33.5 pg (26-32); Mean Corpuscular Hgb Concent. 32.9 g/dl (32-36); Monocyte (Absolute #) 0.81 (0.0-1.3); Monocytes % 8.5 % (0.0-12.0); Neutrophil % 54.4 % (36.0-66.0); Platelet Count 233 K/mm3 (150-450); Red Blood Count 3.37 M/mm3 (4.1-5.4); White Blood Count 9.5 K/mm3 (4.0-10.5)
[2019-10-12 05:46] LABS: ANION GAP 7.7 MEQ/L (5-15); BLOOD UREA NITROGEN 10 mg/dL (7-17); CHLORIDE 113 mmol/L (98-107); Calcium 8.2 mg/dL (8.4-10.2); Carbon Dioxide 23 mmol/L (22-30); Creatinine 1 0.68 mg/dL (0.52-1.04); Glucose 70 mg/dL (74-106); Potassium 3.8 mmol/L (3.5-5.1); SODIUM 139 mmol/L (137-145)
--- NOTE | 2019-10-12 08:05 | PCM.HP ---
History of Present Illness - Chief Complaint Chief Complaint: pyelonephritis, lupus exacerbation History of Present Illness: is a 34 year old female with lupus and history of neurogenic bladder, she presented with severe flank pain and fever. has had some dysuria, has hx recurrent uti's, found to have pyelonephritis, feeling some better since admission. - Review of Systems Constitutional: Fever, Chills Cardiac: No Chest Pain, No Edema, No Syncope Abdominal/Gastrointestinal: No Abdominal Pain, No Nausea, No Vomiting, No Diarrhea Genitourinary Symptoms: Dysuria Musculoskeletal: Back Pain All Other Systems: Reviewed and Negative Medications & Allergies Home Medications: Home Medication List Duloxetine HCl [Cymbalta] 120 mg PO QAM 10/22/17 [History Confirmed 10/11/19] Ergocalciferol (Vitamin D2) [Vitamin D2] 50,000 unit PO Q7D 10/22/17 [History Confirmed 10/11/19] Insulin Lispro [Humalog] 100 unit SQ ACHS 10/22/17 [History Confirmed 10/11/19] Trazodone HCl 25 - 50 mg PO HS PRN 10/22/17 [History Confirmed 10/11/19] Dextroamphetamine/Amphetamine [Adderall 20 mg Tablet] 1 tab PO DAILY 09/28/19 [History Confirmed 10/11/19] Levothyroxine Sodium 100 Mcg [Synthroid 100 Mcg] 1 tab PO DAILY 09/28/19 [History Confirmed 10/11/19] Levothyroxine Sodium 150 Mcg [Synthroid 150 Mcg] 1 tab PO DAILY 09/28/19 [History Confirmed 10/11/19] Metoclopramide HCl 10 mg [Reglan 10 MG] 1 tab PO TID 09/28/19 [History Confirmed 10/11/19] Allergies/Adverse Reactions: Allergies Allergy/AdvReac Type Severity Reaction Status Date / Time No Known Drug Allergies Allergy Verified 10/11/19 15:44 - Past Medical History Past Medical History: Yes Neurological History: Migraines, Peripheral Neuropathy, Seizures, Other Cardiac History: Arrhythmia Respiratory History: Sleep Apnea, Other Endocrine Medical History: Diabetes Type I, Hypothyroidism Musculoskelatal History: Arthritis, Other GI Medical History: No Pertinent History History: No Pertinent History Comment: SAW DR. LYONS AFTER HER FIRST CHILD 6 YEARS AGO. HAD [facility] EARILIER IN 2017 AND HAS BILATERAL CARPAL TUNNEL. hx of lupus. fibromyalgia, peripheral vascular disease, autonomic nervous system disorder - Female History Hx Last Menstrual Period: 09/2019 Are you now?: No - Past Surgical History Past Surgical History: Yes Neuro Surgical History: No Pertinent History Cardiac History: No Pertinent History Respiratory Surgery: No Pertinent History GI Surgical History: No Pertinent History Genitourinary Surgical Hx: No Pertinent History Musculskeletal Surgical Hx: No Pertinent History Female Surgical History: Section - Social History Smoking Status: Never smoker How long have you smoked: years Exposure to second hand smoke: No Alcohol: Rarely Drug Use: marijuana - Physical Exam Vital Signs: Vital Signs - 24 hr Temp Pulse Resp BP Pulse Ox 10/12/19 07:29 98.4 F 64 16 117/71 95 10/12/19 04:00 98.3 F 77 18 94/47 96 10/11/19 23:34 98.5 F 64 16 84/48 98 10/11/19 20:18 98.5 F 76 20 118/63 99 10/11/19 19:45 98.5 F 76 20 118/63 99 10/11/19 18:21 68 16 102/64 99 10/11/19 18:07 99 10/11/19 17:05 68 16 127/83 99 10/11/19 15:47 99 10/11/19 15:31 98.2 F 86 128/91 100 General Appearance: no apparent distress, alert Neurologic Exam: alert, oriented x 3, cooperative, normal mood/affect, nml cerebellar function, nml station & gait, sensation nml, No motor deficits Respiratory Exam: normal breath sounds, lungs clear, No respiratory distress Cardiovascular Exam: regular rate/rhythm, normal heart sounds, normal peripheral pulses Gastrointestinal/Abdomen Exam: soft, normal bowel sounds, No tenderness, No mass Back Exam: CVA tenderness Skin Exam: normal color, warm, dry, No rash Results - Labs Lab/Micro Results: Accuchecks Accucheck Value: 104 Accucheck Value: 104 Lab Results-Last 24 Hours 10/11/19 10/11/19 10/11/19 Range/Units 15:35 15:45 15:45 WBC 13.4 H (4.0-10.5) K/mm3 RBC 4.69 (4.1-5.4) M/mm3 Hgb 15.6 (12.0-16.0) gm/dl Hct 46.0 (35-47) % MCV 98.1 (78-100) fl MCH 33.3 H (26-32) pg MCHC 33.9 (32-36) g/dl RDW 12.1 (11.5-14.0) % Plt Count 326 (150-450) K/mm3 MPV 12.5 H (7.5-11.0) fl Gran % (36.0-66.0) % Eos # (Auto) (0-0.5) Absolute Lymphs (auto) (1.0-4.6) Absolute Monos (auto) (0.0-1.3) Lymphocytes % (24.0-44.0) % Monocytes % (0.0-12.0) % Eosinophils % (0.00-5.0) % Basophils % (0.0-0.4) % Absolute Granulocytes (1.4-6.9) Segmented Neutrophils 86 H (36.0-66.0) % Band Neutrophils 1 (0.0-2.0) % Lymphocytes (Manual) 9 L (24-44) % Monocytes (Manual) 4 (0.0-12.0) % Basophils # (0-0.4) Platelet Estimate NORMAL (NORMAL) RBC Morphology NORMAL Sodium 139 (137-145) mmol/L Potassium 4.6 (3.5-5.1) mmol/L Chloride 106 (98-107) mmol/L Carbon Dioxide 21 L (22-30) mmol/L Anion Gap 16.2 H (5-15) MEQ/L BUN 10 (7-17) mg/dL Creatinine 0.66 (0.52-1.04) mg/dL Estimated GFR > 60.0 ML/MIN Glucose 115 H (74-106) mg/dL Lactic Acid 1.6 (0.4-2.0) Calcium 10.4 H (8.4-10.2) mg/dL Total Bilirubin 1.00 (0.2-1.3) mg/dL AST 27 (14-36) U/L ALT 14 (0-35) U/L Alkaline Phosphatase 103 (38-126) U/L Serum Total Protein 8.9 H (6.3-8.2) g/dL Albumin 4.9 (3.5-5.0) g/dL Urine Color (YELLOW) Urine Appearance (CLEAR) Urine pH (5-6) Ur Specific Noel (1.005-1.025) Urine Protein (Negative) Urine Ketones (NEGATIVE) Urine Blood (0-5) Garrett/ul Urine Nitrite (NEGATIVE) Urine Bilirubin (NEGATIVE) Urine Urobilinogen (0-1) mg/dL Ur Leukocyte Esterase (NEGATIVE) Urine WBC (Auto) (0-5) /HPF Urine RBC (Auto) (0-2) /HPF U Epithel Cells (Auto) (FEW) /HPF Urine Bacteria (Auto) (NEGATIVE) /HPF Urine Mucus (Auto) (NEGATIVE) /HPF Urine Culture Reflexed (NO) Urine Glucose (NEGATIVE) mg/dL SARS-CoV-2 (PCR) (NEGATIVE) 10/11/19 10/11/19 10/12/19 Range/Units 17:10 17:15 04:30 WBC 9.5 (4.0-10.5) K/mm3 RBC 3.37 L (4.1-5.4) M/mm3 Hgb 11.3 L D (12.0-16.0) gm/dl Hct 34.3 L (35-47) % MCV 101.8 H (78-100) fl MCH 33.5 H (26-32) pg MCHC 32.9 (32-36) g/dl RDW 12.0 (11.5-14.0) % Plt Count 233 (150-450) K/mm3 MPV 12.0 H (7.5-11.0) fl Gran % 54.4 (36.0-66.0) % Eos # (Auto) 0.12 (0-0.5) Absolute Lymphs (auto) 3.36 (1.0-4.6) Absolute Monos (auto) 0.81 (0.0-1.3) Lymphocytes % 35.4 (24.0-44.0) % Monocytes % 8.5 (0.0-12.0) % Eosinophils % 1.3 (0.00-5.0) % Basophils % 0.4 (0.0-0.4) % Absolute Granulocytes 5.15 (1.4-6.9) Segmented Neutrophils (36.0-66.0) % Band Neutrophils (0.0-2.0) % Lymphocytes (Manual) (24-44) % Monocytes (Manual) (0.0-12.0) % Basophils # 0.04 (0-0.4) Platelet Estimate (NORMAL) RBC Morphology Sodium (137-145) mmol/L Potassium (3.5-5.1) mmol/L Chloride (98-107) mmol/L Carbon Dioxide (22-30) mmol/L Anion Gap (5-15) MEQ/L BUN (7-17) mg/dL Creatinine (0.52-1.04) mg/dL Estimated GFR ML/MIN Glucose (74-106) mg/dL Lactic Acid (0.4-2.0) Calcium (8.4-10.2) mg/dL Total Bilirubin (0.2-1.3) mg/dL AST (14-36) U/L ALT (0-35) U/L Alkaline Phosphatase (38-126) U/L Serum Total Protein (6.3-8.2) g/dL Albumin (3.5-5.0) g/dL Urine Color YELLOW (YELLOW) Urine Appearance SLIGHTLY CLOUDY (CLEAR) Urine pH 7.0 (5-6) Ur Specific Noel 1.012 (1.005-1.025) Urine Protein NEGATIVE (Negative) Urine Ketones MODERATE (NEGATIVE) Urine Blood NEGATIVE (0-5) Garrett/ul Urine Nitrite NEGATIVE (NEGATIVE) Urine Bilirubin NEGATIVE (NEGATIVE) Urine Urobilinogen NEGATIVE (0-1) mg/dL Ur Leukocyte Esterase SMALL (NEGATIVE) Urine WBC (Auto) 26-50 (0-5) /HPF Urine RBC (Auto) NONE (0-2) /HPF U Epithel Cells (Auto) RARE (FEW) /HPF Urine Bacteria (Auto) FEW (NEGATIVE) /HPF Urine Mucus (Auto) SLIGHT (NEGATIVE) /HPF Urine Culture Reflexed ORDERED SEPARATELY (NO) Urine Glucose NEGATIVE (NEGATIVE) mg/dL SARS-CoV-2 (PCR) NEGATIVE (NEGATIVE) 10/12/19 Range/Units 04:30 WBC (4.0-10.5) K/mm3 RBC (4.1-5.4) M/mm3 Hgb (12.0-16.0) gm/dl Hct (35-47) % MCV (78-100) fl MCH (26-32) pg MCHC (32-36) g/dl RDW (11.5-14.0) % Plt Count (150-450) K/mm3 MPV (7.5-11.0) fl Gran % (36.0-66.0) % Eos # (Auto) (0-0.5) Absolute Lymphs (auto) (1.0-4.6) Absolute Monos (auto) (0.0-1.3) Lymphocytes % (24.0-44.0) % Monocytes % (0.0-12.0) % Eosinophils % (0.00-5.0) % Basophils % (0.0-0.4) % Absolute Granulocytes (1.4-6.9) Segmented Neutrophils (36.0-66.0) % Band Neutrophils (0.0-2.0) % Lymphocytes (Manual) (24-44) % Monocytes (Manual) (0.0-12.0) % Basophils # (0-0.4) Platelet Estimate (NORMAL) RBC Morphology Sodium 139 (137-145) mmol/L Potassium 3.8 (3.5-5.1) mmol/L Chloride 113 H (98-107) mmol/L Carbon Dioxide 23 (22-30) mmol/L Anion Gap 7.7 (5-15) MEQ/L BUN 10 (7-17) mg/dL Creatinine 0.68 (0.52-1.04) mg/dL Estimated GFR > 60.0 ML/MIN Glucose 70 L (74-106) mg/dL Lactic Acid (0.4-2.0) Calcium 8.2 L D (8.4-10.2) mg/dL Total Bilirubin (0.2-1.3) mg/dL AST (14-36) U/L ALT (0-35) U/L Alkaline Phosphatase (38-126) U/L Serum Total Protein (6.3-8.2) g/dL Albumin (3.5-5.0) g/dL Urine Color (YELLOW) Urine Appearance (CLEAR) Urine pH (5-6) Ur Specific Noel (1.005-1.025) Urine Protein (Negative) Urine Ketones (NEGATIVE) Urine Blood (0-5) Garrett/ul Urine Nitrite (NEGATIVE) Urine Bilirubin (NEGATIVE) Urine Urobilinogen (0-1) mg/dL Ur Leukocyte Esterase (NEGATIVE) Urine WBC (Auto) (0-5) /HPF Urine RBC (Auto) (0-2) /HPF U Epithel Cells (Auto) (FEW) /HPF Urine Bacteria (Auto) (NEGATIVE) /HPF Urine Mucus (Auto) (NEGATIVE) /HPF Urine Culture Reflexed (NO) Urine Glucose (NEGATIVE) mg/dL SARS-CoV-2 (PCR) (NEGATIVE) Microbiology 10/11/19 17:15 Urine Culture - Preliminary Clean Catch Midstream GRAM NEGATIVE ID AND SENSITIVITY PENDING Accuchecks Accucheck Value: 104 Accucheck Value: 104 - Radiology Impressions Radiology Exams & Impressions: Radiology Procedures Category Date Time Status CHEST 2 VIEWS (PA AND LAT) Stat Exams 10/11/19 15:36 Completed Assessment/Plan (1) Acute pyelonephritis Current Visit: No Status: Acute Assessment & Plan: continue rocephin, culture and sens pending. culture from 10/06 e coli sens to rocephin, was ordered by her urologist but she didn't get called with results Code(s): N10 - ACUTE PYELONEPHRITIS (2) Lupus (systemic lupus erythematosus) Current Visit: Yes Status: Acute Qualifiers: Systemic lupus erythematosus type: unspecified Systemic lupus erythematosus organ involvement: unspecified Qualified Code(s): M32.9 - Systemic lupus erythematosus, unspecified Code(s): M32.9 - SYSTEMIC LUPUS ERYTHEMATOSUS, UNSPECIFIED
[2019-10-12] MEDS ORDERED: DESYREL 50 MG PO PRN (09:15)
[2019-10-12 09:18] LABS: Slide Review 1 YES
[2019-10-12] MEDS ORDERED: MEDICATION INTERVENTION PO SCH (09:30)
[2019-10-12] MEDS: ROCEPHIN 1 Gm-D5w 50 ml Bag** 1 G/50 ML IVPB IV SCH (09:44)
[2019-10-12] MEDS: SYNTHROID 100 MCG PO SCH (09:44)
[2019-10-12] MEDS: Reglan 10 MG PO SCH ×3 (09:44→21:22)
[2019-10-12] MEDS: SYNTHROID 150 MCG PO SCH (09:44)
[2019-10-12] MEDS: Cymbalta 30 MG Capsule PO SCH (09:44)
[2019-10-12] MEDS ORDERED: DEXTROAMPHETAMINE PO SCH (10:00)
[2019-10-12] MEDS ORDERED: AMPHETAMINE PO SCH (10:00)
[2019-10-12] MEDS: TYLENOL 325 MG PO PRN (10:42)
[2019-10-12] MEDS: Zofran 4 MG/2 ML VIAL IV PRN ×2 (11:17→19:05)
[2019-10-12] MEDS ORDERED: NON-FORMULARY ITEM (Insulin Lispro 100 UNIT) SQ SCH (11:30)
[2019-10-12] MEDS: Sodium Chloride 0.9% W/ 20 mEq KCl/LITER 1,000 ML IV SCH (17:57)
[2019-10-12] MEDS ORDERED: RIZATRIPTAN 10 MG PO PRN (21:49)
[2019-10-13] MEDS: Sodium Chloride 0.9% W/ 20 mEq KCl/LITER 1,000 ML IV SCH (03:27)
[2019-10-13] MEDS: Zofran 4 MG/2 ML VIAL IV PRN (04:58)
[2019-10-13 05:19] LABS: Absolute Neutrophil Ct (ANC) 5.02 (1.4-6.9); BASOPHIL % 0.4 % (0.0-0.4); Basophil (Absolute #) 0.04 (0-0.4); Eosinophil (Absolute #) 0.18 (0-0.5); Hematocrit 34.1 % (35-47); Hemoglobin 11.1 gm/dl (12.0-16.0); Lymphocyte (Absolute #) 3.08 (1.0-4.6); Lymphocytes % 34.1 % (24.0-44.0); Mean Cell Volume 101.8 fl (78-100); Mean Corpuscular Hemoglobin 33.1 pg (26-32); Mean Corpuscular Hgb Concent. 32.6 g/dl (32-36); Mean Platelet Volume 12.3 fl (7.5-11.0); Monocytes % 7.8 % (0.0-12.0); Neutrophil % 55.7 % (36.0-66.0); Platelet Count 240 K/mm3 (150-450); Red Blood Count 3.35 M/mm3 (4.1-5.4); Red Cell Distribution Width 11.9 % (11.5-14.0)
[2019-10-13 05:36] LABS: ANION GAP 7.8 MEQ/L (5-15); BLOOD UREA NITROGEN 5 mg/dL (7-17); CHLORIDE 111 mmol/L (98-107); Calcium 8.4 mg/dL (8.4-10.2); Carbon Dioxide 23 mmol/L (22-30); Creatinine 1 0.64 mg/dL (0.52-1.04); Glucose 100 mg/dL (74-106); SODIUM 138 mmol/L (137-145)
[2019-10-13] MEDS ORDERED: PATIENT OWN MEDICATION PO PRN (06:47)
[2019-10-13 07:21] VITALS: BP 99/55; PULSE 61; O2SAT 95
[2019-10-13] MEDS: ROCEPHIN 1 Gm-D5w 50 ml Bag** 1 G/50 ML IVPB IV SCH (08:04)
[2019-10-13] MEDS: Cymbalta 30 MG Capsule PO SCH (08:04)
[2019-10-13] MEDS: SYNTHROID 100 MCG PO SCH (08:04)
[2019-10-13] MEDS: Reglan 10 MG PO SCH (08:04)
[2019-10-13] MEDS: SYNTHROID 150 MCG PO SCH (08:04)
--- NOTE | 2019-10-13 08:17 | PCM.DS ---
Discharge Summary Date of Admission: 10/11/19 19:19 Admitting Physician: LOWELL OLMSTEAD Primary Care Provider: IRENE CARR Allergies Allergies No Known Drug Allergies Allergy (Verified 10/11/19 15:44) Hospital Summary - Hospital Course Hospital Course: patient was admitted with flank pain, fever and vomiting. e coli on urine culture, c/w pyelonephritis. flank pain resolved, afebrile with normal white count on discharge. doing well - Vitals & Intake/Output Vital Signs: Vital Signs Temperature 98.2 F 10/13/19 07:19 Pulse Rate 61 10/13/19 07:19 Respiratory Rate 16 10/13/19 07:19 Blood Pressure 99/55 10/13/19 07:19 O2 Sat by Pulse Oximetry 95 10/13/19 07:19 Intake & Output: Intake & Output 10/10/19 10/11/19 10/12/19 10/13/19 11:59 11:59 11:59 11:59 Intake Total 1183 2888 Output Total 1100 2400 Balance 83 488 Weight 81.193 kg - Lab Result Diagrams: 10/13/19 04:32 10/13/19 04:32 Lab Results-Last 24 Hrs: Accuchecks Date 10/12/19 Date 10/12/19 Time 16:30 Time 11:30 Accucheck Value: 100 Accucheck Value: 122 Accucheck Value: 110 Accucheck Value: 85 Lab Results-Last 24 Hours 10/12/19 10/13/19 10/13/19 Range/Units 04:30 04:32 04:32 WBC 9.0 (4.0-10.5) K/mm3 RBC 3.35 L (4.1-5.4) M/mm3 Hgb 11.1 L (12.0-16.0) gm/dl Hct 34.1 L (35-47) % MCV 101.8 H (78-100) fl MCH 33.1 H (26-32) pg MCHC 32.6 (32-36) g/dl RDW 11.9 (11.5-14.0) % Plt Count 240 (150-450) K/mm3 MPV 12.3 H (7.5-11.0) fl Gran % 55.7 (36.0-66.0) % Eos # (Auto) 0.18 (0-0.5) Absolute Lymphs (auto) 3.08 (1.0-4.6) Absolute Monos (auto) 0.70 (0.0-1.3) Lymphocytes % 34.1 (24.0-44.0) % Monocytes % 7.8 (0.0-12.0) % Eosinophils % 2.0 (0.00-5.0) % Basophils % 0.4 (0.0-0.4) % Absolute Granulocytes 5.02 (1.4-6.9) Basophils # 0.04 (0-0.4) Sodium 138 (137-145) mmol/L Potassium 4.0 (3.5-5.1) mmol/L Chloride 111 H (98-107) mmol/L Carbon Dioxide 23 (22-30) mmol/L Anion Gap 7.8 (5-15) MEQ/L BUN 5 L (7-17) mg/dL Creatinine 0.64 (0.52-1.04) mg/dL Estimated GFR > 60.0 ML/MIN Glucose 100 (74-106) mg/dL Calcium 8.4 (8.4-10.2) mg/dL Slides for Path Review YES Micro Results-Entire Visit: Microbiology 10/11/19 17:15 Urine Culture - Final Clean Catch Midstream Escherichia Coli Accuchecks Date 10/12/19 Date 10/12/19 Time 16:30 Time 11:30 Accucheck Value: 100 Accucheck Value: 122 Accucheck Value: 110 Accucheck Value: 85 - Radiology Exams Ordered Rad Exams-Entire Visit: Radiology Procedures Category Date Time Status CHEST 2 VIEWS (PA AND LAT) Stat Exams 10/11/19 15:36 Completed Discharge Exam General Appearance: no apparent distress, alert Eye Exam: PERRL, EOMI, eyes nml inspection Respiratory Exam: normal breath sounds, lungs clear, No respiratory distress Cardiovascular Exam: regular rate/rhythm, normal heart sounds Gastrointestinal/Abdomen Exam: soft, No tenderness, No mass Extremity Exam: normal inspection, normal range of motion Final Diagnosis/Problem List - Final Discharge Diagnosis/Problem (1) Acute pyelonephritis Current Visit: No Status: Acute Assessment & Plan: home on levaquin based on urine culture with e coli Code(s): N10 - ACUTE PYELONEPHRITIS (2) Lupus (systemic lupus erythematosus) Current Visit: Yes Status: Acute Code(s): M32.9 - SYSTEMIC LUPUS ERYTHEMATOSUS, UNSPECIFIED - Discharge Disposition: Home, Self-Care Condition: Fair Prescriptions: New Levofloxacin [Levaquin] 500 mg PO DAILY #7 tablet Continue Duloxetine HCl [Cymbalta] 120 mg PO QAM Trazodone HCl 25 - 50 mg PO HS PRN PRN Reason: Anxiety Ergocalciferol (Vitamin D2) [Vitamin D2] 50,000 unit PO Q7D Insulin Lispro [Humalog] 100 unit SQ ACHS Metoclopramide HCl 10 mg [Reglan 10 MG] 1 tab PO TID Levothyroxine Sodium 100 Mcg [Synthroid 100 Mcg] 1 tab PO DAILY Levothyroxine Sodium 150 Mcg [Synthroid 150 Mcg] 1 tab PO DAILY Dextroamphetamine/Amphetamine [Adderall 20 mg Tablet] 1 tab PO DAILY Follow up with: IRENE CARR [Primary Care Provider] - 1 Week
== END 2019-10-13 10:15 | disposition home or self-care (01) ==
LOC: ED 15:28 → MED SURG 19:19
PROVIDERS: ADMIT Family Medicine; ATTEND Family Medicine
DX: N10 Acute pyelonephritis (principal); M32.9 Systemic lupus erythematosus, unspecified; E10.9 Type 1 diabetes mellitus without complications; E03.9 Hypothyroidism, unspecified; Z79.899 Other long term (current) drug therapy; Z79.4 Long term (current) use of insulin
CPT/HCPCS: 36415; 80048; 80053; 81001; 82962; 83605; 85025; 87040; 87077; 87086; 87186; 96360; 96361; 96365; 96374; 99291; G0378; U0003; 36000; 71046; 94760; 99285; J0696; J1885; J2405; A9270-GY

== ENCOUNTER 2019-10-24 12:38 | Emergency (ER) | payer OTHER ==
[2019-10-24 13:07] VITALS: BP 106/72; PULSE 74; O2SAT 100
[2019-10-24] MEDS ORDERED: Zofran 4 MG/2 ML VIAL IV ONE (13:08)
[2019-10-24] MEDS ORDERED: MORPHINE SULFATE 4 MG INJ IV ONE (13:08)
[2019-10-24] MEDS ORDERED: Sodium Chloride 0.9% 1000 ML 1,000 ML IV STA (13:08)
--- NOTE | 2019-10-24 13:16 | ERPHSYRPT ---
- History of Present Illness Time Seen by Provider: 10/24/19 13:02 Historian: patient Exam Limitations: no limitations Patient Subjective Stated Complaint: Vomiting Triage Nursing Assessment: Patient brought back to ED via w/c and transferred to bed with assist of 1. Patient's skin pink, warm and dry. Patient complains of abdominal pain and body aches constant aching pain /10. Patient states she has been vomiting for 3 days. Patient's abdomen soft and round with BS X 4. Physician History: 34 years old female with history of type 1 diabetes mellitus, gastroparesis, Graves' disease, lupus, autonomic dysfunction presented in the ER with chief complaint of 3 days history of generalized abdominal pain more in the upper abdomen associated with multiple episodes of nonprojectile, nonbilious vomiting with no hematemesis. Patient reports vomiting every time she tries to eat or drink. She has been taking Reglan which does not seem working. She is also taking [place] which is not taking care of her abdominal pain. Denies any fever or chills. Patient reports feeling dehydrated, fatigued and tired with lack of energy. Patient reports no elevation in blood sugar. Timing/Duration: day(s) (3), gradual onset, worse Activities at Onset: rest Quality: aching Abdominal Pain Onset Location: generalized abdomen Pain Radiation: no radiation Severity of Pain-Max: moderate Severity of Pain-Current: moderate Modifying Factors: Improves With: eating Associated Symptoms: nausea, vomiting Previous symptoms: same symptoms as today Allergies/Adverse Reactions: No Known Drug Allergies Allergy (Verified 10/24/19 12:59) Home Medications: Duloxetine HCl [Cymbalta] 120 mg PO QAM 10/22/17 [History] Ergocalciferol (Vitamin D2) [Vitamin D2] 50,000 unit PO Q7D 10/22/17 [History] Insulin Lispro [Humalog] 100 unit SQ ACHS 10/22/17 [History] Trazodone HCl 25 - 50 mg PO HS PRN 10/22/17 [History] Dextroamphetamine/Amphetamine [Adderall 20 mg Tablet] 1 tab PO DAILY 09/28/19 [History] Levothyroxine Sodium 100 Mcg [Synthroid 100 Mcg] 1 tab PO DAILY 09/28/19 [History] Levothyroxine Sodium 150 Mcg [Synthroid 150 Mcg] 1 tab PO DAILY 09/28/19 [History] Metoclopramide HCl 10 mg [Reglan 10 MG] 1 tab PO TID 09/28/19 [History] Hx Tetanus, Diphtheria Vaccination/Date Given: Yes Hx Influenza Vaccination/Date Given: Yes Hx Pneumococcal Vaccination/Date Given: No Immunizations Up to Date: Yes Travel Risk - International Travel Have you traveled outside of the country in past 3 weeks: No - Coronavirus Screening Are you exhibiting any of the following symptoms?: No Close contact with a COVID-19 positive Pt in past 14-21 Days: No - Review of Systems Constitutional: Malaise, Weakness Eyes: No Symptoms Ears, Nose, & Throat: No Symptoms Respiratory: No Symptoms Cardiac: No Symptoms Abdominal/Gastrointestinal: Abdominal Pain, Nausea, Vomiting Genitourinary Symptoms: No Symptoms Musculoskeletal: Myalgias Skin: No Symptoms Neurological: No Symptoms Psychological: No Symptoms Endocrine: No Symptoms Hematologic/Lymphatic: No Symptoms Immunological/Allergic: No Symptoms - Past Medical History Pertinent Past Medical History: Yes Neurological History: Migraines, Peripheral Neuropathy, Seizures, Other Cardiac History: Arrhythmia Respiratory History: Sleep Apnea, Other Endocrine Medical History: Diabetes Type I, Hypothyroidism Musculoskeletal History: Arthritis, Other GI Medical History: No Pertinent History History: No Pertinent History Other Medical History: SAW DR. LYONS AFTER HER FIRST CHILD 6 YEARS AGO. HAD EMG EARILIER IN 2017 AND HAS BILATERAL CARPAL TUNNEL. hx of lupus. fibromyalgia, peripheral vascular disease, autonomic nervous system disorder - Past Surgical History Past Surgical History: Yes Neuro Surgical History: No Pertinent History Cardiac: No Pertinent History Respiratory: No Pertinent History Gastrointestinal: No Pertinent History Genitourinary: No Pertinent History Musculoskeletal: No Pertinent History Female Surgical History: Section - Social History Smoking Status: Never smoker How long have you smoked: years Exposure to second hand smoke: No Drug Use: marijuana Patient Lives Alone: No - Female History Hx Last Menstrual Period: last week Hx Now: No - Nursing Vital Signs Nursing Vital Signs: Initial Vital Signs Temperature 98.2 F 10/24/19 13:00 Pulse Rate 74 10/24/19 13:00 Respiratory Rate 18 10/24/19 13:00 Blood Pressure 106/72 10/24/19 13:00 O2 Sat by Pulse Oximetry 100 10/24/19 13:00 Pain Scale Pain Intensity 6 - Physical Exam General Appearance: no apparent distress, alert Eye Exam: eyes nml inspection Ears, Nose, Throat Exam: normal ENT inspection, pharynx normal Neck Exam: normal inspection, non-tender, supple, full range of motion Respiratory Exam: normal breath sounds, lungs clear Cardiovascular Exam: regular rate/rhythm, normal heart sounds Gastrointestinal/Abdomen Exam: soft, tenderness (Neurolysed with no guarding or rebound) Back Exam: normal inspection, normal range of motion Extremity Exam: normal inspection, normal range of motion Neurologic Exam: alert, oriented x 3, cooperative Skin Exam: normal color, warm SpO2 Interpretation: normal SpO2: 100 O2 Delivery: Room Air Ordered Tests: Active Orders 24 hr Category Date Time Status IV Insertion STAT Care 10/24/19 13:08 Active NPO (ED) STAT Care 10/24/19 13:08 Active ABDOMEN AND PELVIS W/0 CONTRAS [CT] Stat Exams 10/24/19 13:08 Taken AMYLASE Stat Lab 10/24/19 13:20 Completed CBC W DIFF Stat Lab 10/24/19 13:20 Completed CMP Stat Lab 10/24/19 13:20 Completed HCG,QUALITATIVE URINE Stat Lab 10/24/19 13:20 Completed LIPASE Stat Lab 10/24/19 13:20 Completed UA W/RFX UR CULTURE Stat Lab 10/24/19 13:20 Completed VENOUS BLOOD GAS Stat Lab 10/24/19 13:09 Completed Medication Summary Discontinued Medications Generic Name Dose Route Start Last Admin Trade Name Freq PRN Reason Stop Dose Admin Hydromorphone HCl 1 mg 10/24/19 14:54 10/24/19 15:03 Hydromorphone 1 Mg/Ml Ampule IV 10/24/19 14:55 1 mg STAT ONE Administration Hydromorphone HCl Confirm 10/24/19 15:02 Hydromorphone 1 Mg/Ml Ampule Administered 10/24/19 15:03 Dose 1 mg .ROUTE .STK-MED ONE Sodium Chloride 1,000 mls @ 999 mls/hr 10/24/19 13:08 10/24/19 14:51 Sodium Chloride 0.9% 1000 Ml IV 10/24/19 14:08 Infused .Q1H1M STA Infusion Sodium Chloride Confirm 10/24/19 13:22 Sodium Chloride 0.9% 1000 Ml Administered 10/24/19 13:23 Dose 1,000 mls @ ud .ROUTE .STK-MED ONE Morphine Sulfate 4 mg 10/24/19 13:08 10/24/19 13:32 Morphine Sulfate 4 Mg Inj IV 10/24/19 13:09 4 mg STAT ONE Administration Morphine Sulfate Confirm 10/24/19 13:22 Morphine Sulfate 4 Mg Inj Administered 10/24/19 13:23 Dose 4 mg .ROUTE .STK-MED ONE Ondansetron HCl 4 mg 10/24/19 13:08 10/24/19 13:32 Zofran 4 Mg/2 Ml Vial IV 10/24/19 13:09 4 mg STAT ONE Administration Ondansetron HCl Confirm 10/24/19 13:22 Zofran 4 Mg/2 Ml Vial Administered 10/24/19 13:23 Dose 4 mg .ROUTE .STK-MED ONE Lab/Rad Data: Laboratory Result Diagrams 10/24/19 13:20 10/24/19 13:20 Laboratory Results 10/24/19 10/24/19 10/24/19 Range/Units 13:20 13:20 13:20 WBC (4.0-10.5) K/mm3 RBC (4.1-5.4) M/mm3 Hgb (12.0-16.0) gm/dl Hct (35-47) % MCV (78-100) fl MCH (26-32) pg MCHC (32-36) g/dl RDW (11.5-14.0) % Plt Count (150-450) K/mm3 MPV (7.5-11.0) fl Gran % (36.0-66.0) % Eos # (Auto) (0-0.5) Absolute Lymphs (auto) (1.0-4.6) Absolute Monos (auto) (0.0-1.3) Lymphocytes % (24.0-44.0) % Monocytes % (0.0-12.0) % Eosinophils % (0.00-5.0) % Basophils % (0.0-0.4) % Absolute Granulocytes (1.4-6.9) Basophils # (0-0.4) pO2/FiO2 Ratio % VBG pH (7.32-7.42) VBG pCO2 at Pat Temp (42-55) mm/Hg VBG pO2 at Pat Temp (25-40) mm/Hg VBG HCO3 (22-28) meq/L VBG O2 Sat (Heriberto) (95-100) VBG Base Excess (-2.0-2.0) VBG Hemoglobin VBG Carboxyhemoglobin (0.0-6.9) % T HGB POC Potassium (3.5-5.1) Sodium 139 (137-145) mmol/L Potassium 4.7 (3.5-5.1) mmol/L Chloride 104 (98-107) mmol/L Carbon Dioxide 26 (22-30) mmol/L Anion Gap 14.5 (5-15) MEQ/L BUN 6 L (7-17) mg/dL Creatinine 0.75 (0.52-1.04) mg/dL Estimated GFR > 60.0 ML/MIN Glucose 183 H (74-106) mg/dL Calcium 10.2 (8.4-10.2) mg/dL Total Bilirubin 0.90 (0.2-1.3) mg/dL AST 19 (14-36) U/L ALT 11 (0-35) U/L Alkaline Phosphatase 91 (38-126) U/L Serum Total Protein 7.9 (6.3-8.2) g/dL Albumin 4.3 (3.5-5.0) g/dL Amylase 73 (30-110) U/L Lipase 16 L (23-300) U/L Urine Color YELLOW (YELLOW) Urine Appearance SLIGHTLY CLOUDY (CLEAR) Urine pH 9.0 (5-6) Ur Specific [place] 1.011 (1.005-1.025) Urine Protein NEGATIVE (Negative) Urine Ketones SMALL (NEGATIVE) Urine Blood NEGATIVE (0-5) Garrett/ul Urine Nitrite NEGATIVE (NEGATIVE) Urine Bilirubin NEGATIVE (NEGATIVE) Urine Urobilinogen 2 (0-1) mg/dL Ur Leukocyte Esterase NEGATIVE (NEGATIVE) Urine WBC (Auto) NONE (0-5) /HPF Urine RBC (Auto) NONE (0-2) /HPF U Epithel Cells (Auto) RARE (FEW) /HPF Urine Bacteria (Auto) NONE (NEGATIVE) /HPF Urine Mucus (Auto) SLIGHT (NEGATIVE) /HPF Urine Culture Reflexed NO (NO) Urine Glucose NEGATIVE (NEGATIVE) mg/dL Urine HCG, Qual NEGATIVE (Negative) 07/18/20 07/18/20 Range/Units 13:20 13:09 WBC 8.9 (4.0-10.5) K/mm3 RBC 4.43 (4.1-5.4) M/mm3 Hgb 14.7 (12.0-16.0) gm/dl Hct 43.6 (35-47) % MCV 98.4 (78-100) fl MCH 33.2 H (26-32) pg MCHC 33.7 (32-36) g/dl RDW 11.5 (11.5-14.0) % Plt Count 292 (150-450) K/mm3 MPV 11.9 H (7.5-11.0) fl Gran % 70.9 H (36.0-66.0) % Eos # (Auto) 0.12 (0-0.5) Absolute Lymphs (auto) 1.86 (1.0-4.6) Absolute Monos (auto) 0.55 (0.0-1.3) Lymphocytes % 21.0 L (24.0-44.0) % Monocytes % 6.2 (0.0-12.0) % Eosinophils % 1.4 (0.00-5.0) % Basophils % 0.5 (0.0-0.4) % Absolute Granulocytes 6.29 (1.4-6.9) Basophils # 0.04 (0-0.4) pO2/FiO2 Ratio 21.0 % VBG pH 7.53 H (7.32-7.42) VBG pCO2 at Pat Temp 33 L (42-55) mm/Hg VBG pO2 at Pat Temp 26 (25-40) mm/Hg VBG HCO3 27.6 (22-28) meq/L VBG O2 Sat (Heriberto) 56.4 L (95-100) VBG Base Excess 5.1 H (-2.0-2.0) VBG Hemoglobin 15.2 VBG Carboxyhemoglobin 4.5 (0.0-6.9) % T HGB POC Potassium 4.7 (3.5-5.1) Sodium (137-145) mmol/L Potassium (3.5-5.1) mmol/L Chloride (98-107) mmol/L Carbon Dioxide (22-30) mmol/L Anion Gap (5-15) MEQ/L BUN (7-17) mg/dL Creatinine (0.52-1.04) mg/dL Estimated GFR ML/MIN Glucose (74-106) mg/dL Calcium (8.4-10.2) mg/dL Total Bilirubin (0.2-1.3) mg/dL AST (14-36) U/L ALT (0-35) U/L Alkaline Phosphatase (38-126) U/L Serum Total Protein (6.3-8.2) g/dL Albumin (3.5-5.0) g/dL Amylase (30-110) U/L Lipase (23-300) U/L Urine Color (YELLOW) Urine Appearance (CLEAR) Urine pH (5-6) Ur Specific [place] (1.005-1.025) Urine Protein (Negative) Urine Ketones (NEGATIVE) Urine Blood (0-5) Garrett/ul Urine Nitrite (NEGATIVE) Urine Bilirubin (NEGATIVE) Urine Urobilinogen (0-1) mg/dL Ur Leukocyte Esterase (NEGATIVE) Urine WBC (Auto) (0-5) /HPF Urine RBC (Auto) (0-2) /HPF U Epithel Cells (Auto) (FEW) /HPF Urine Bacteria (Auto) (NEGATIVE) /HPF Urine Mucus (Auto) (NEGATIVE) /HPF Urine Culture Reflexed (NO) Urine Glucose (NEGATIVE) mg/dL Urine HCG, Qual (Negative) - Progress Progress: improved, re-examined Progress Note: 10/24/19 16:07 34 years old type I diabetic with gastroparesis is evaluated for abdominal pain and vomiting. Patient is given IV fluid and symptomatic treatment for pain. She is not in DKA. I have obtained CT abdomen pelvis which did not show any obstruction, pancreatitis or any other acute findings. Patient is feeling much improved on reevaluation. No peritoneal signs. I have advised her to continue with Reglan and keep appointment with Dr. Vela as scheduled for reevaluation. Discussed signs symptoms of worsening needing return to ER which he seems understanding. Stable for discharge. Counseled pt/family regarding: lab results, diagnosis, need for follow-up, rad results - Departure Departure Disposition: Home Clinical Impression: Gastroparesis Nausea & vomiting Qualifiers: Vomiting type: unspecified Vomiting Intractability: non-intractable Qualified Code(s): R11.2 - Nausea with vomiting, unspecified Abdominal pain Qualifiers: Abdominal location: generalized Qualified Code(s): R10.84 - Generalized abdominal pain Condition: Stable Critical Care Time: No Referrals: IRENE CARR [Primary Care Provider] - Follow Up with PCP/3 days SUE VELA MD [NON-STAFF PHY W/O PRIVILEGES] - (Call for appointment in the next 2 days.) Instructions: Nausea and Vomiting, Adult (DC), Gastroparesis (Delayed Gastric Emptying) (DC) Additional Instructions: Plenty of fluids. Have small frequent meals. Continue with Reglan. Follow-up with primary care and gastroenterology for reevaluation. Return to ER for worsening.
[2019-10-24] MEDS ORDERED: Zofran 4 MG/2 ML VIAL ONE (13:22)
[2019-10-24] MEDS ORDERED: Sodium Chloride 0.9% 1000 ML 1,000 ML ONE (13:22)
[2019-10-24] MEDS ORDERED: MORPHINE SULFATE 4 MG INJ ONE (13:22)
[2019-10-24 13:27] LABS: Absolute Neutrophil Ct (ANC) 6.29 (1.4-6.9); BASOPHIL % 0.5 % (0.0-0.4); Basophil (Absolute #) 0.04 (0-0.4); Eosinophil % 1.4 % (0.00-5.0); Eosinophil (Absolute #) 0.12 (0-0.5); Hematocrit 43.6 % (35-47); Hemoglobin 14.7 gm/dl (12.0-16.0); Lymphocyte (Absolute #) 1.86 (1.0-4.6); Mean Cell Volume 98.4 fl (78-100); Mean Corpuscular Hemoglobin 33.2 pg (26-32); Mean Corpuscular Hgb Concent. 33.7 g/dl (32-36); Mean Platelet Volume 11.9 fl (7.5-11.0); Monocyte (Absolute #) 0.55 (0.0-1.3); Monocytes % 6.2 % (0.0-12.0); Neutrophil % 70.9 % (36.0-66.0); Platelet Count 292 K/mm3 (150-450); Red Blood Count 4.43 M/mm3 (4.1-5.4); Red Cell Distribution Width 11.5 % (11.5-14.0); White Blood Count 8.9 K/mm3 (4.0-10.5)
[2019-10-24 13:30] LABS: VBG BASE EXCESS 5.1 (-2.0-2.0); VBG CARBOXYHEMOGLOBIN 4.5 % T HGB (0.0-6.9); VBG HCO3- 27.6 meq/L (22-28); VBG HEMOGLOBIN 15.2; VBG O2 SATURATION 56.4 (95-100); VBG POTASSIUM 4.7 (3.5-5.1); VBG pH 7.53 (7.32-7.42)
[2019-10-24 13:31] LABS: Appearance SLIGHTLY CLOUDY (CLEAR); Bilirubin NEGATIVE (NEGATIVE); Blood NEGATIVE Ery/ul (0-5); Epithelial Cells RARE /HPF (FEW); Glucose NEGATIVE (NEGATIVE); Ketones SMALL (NEGATIVE); Leukocyte Esterase NEGATIVE (NEGATIVE); Mucus SLIGHT /HPF (NEGATIVE); Nitrite NEGATIVE (NEGATIVE); Protein,Urine Dip NEGATIVE (Negative); Specific Gravity 1.011 (1.005-1.025); Urobilinogen 2 mg/dL (0-1)
[2019-10-24 13:43] LABS: ALBUMIN 4.3 g/dL (3.5-5.0); ALKALINE PHOSPHATASE 91 U/L (38-126); AMYLASE 73 U/L (30-110); ANION GAP 14.5 MEQ/L (5-15); BLOOD UREA NITROGEN 6 mg/dL (7-17); CHLORIDE 104 mmol/L (98-107); Calcium 10.2 mg/dL (8.4-10.2); Carbon Dioxide 26 mmol/L (22-30); Creatinine 1 0.75 mg/dL (0.52-1.04); Glucose 183 mg/dL (74-106); LIPASE 16 U/L (23-300); Potassium 4.7 mmol/L (3.5-5.1); SGOT/AST 19 U/L (14-36); SGPT/ALT 11 U/L (0-35); SODIUM 139 mmol/L (137-145); Total Protein 7.9 g/dL (6.3-8.2)
[2019-10-24] MEDS ORDERED: Hydromorphone 1 mg/ml Ampule IV ONE (14:54)
[2019-10-24] MEDS ORDERED: Hydromorphone 1 mg/ml Ampule ONE (15:02)
--- NOTE | 2019-10-24 17:07 | XRAY ---
Indication: Abdomen pain. Nausea and vomiting. History gastroparesis. Multiple contiguous axial images obtained through the abdomen and pelvis without contrast as ordered. Comparison: October 22, 2017. Lung bases are clear. Heart is not enlarged. Noncontrasted stomach and bowel loops remain nonobstructed. Normal appendix. No free fluid/air. Remaining liver, gallbladder, pancreas, spleen, adrenal glands, kidneys, ureters, bladder, and uterus appear unremarkable for noncontrast exam. Minimal aortoiliac calcifications without AAA. Osseous structures remain intact. No ventral or inguinal hernias. Impression: CT abdomen/pelvis without contrast exam is negative. Comment: Preliminary interpretation was made by [facility]. No critical discrepancy.
== END 2019-10-24 16:22 | disposition home or self-care (01) ==
LOC: ED 12:38
DX: G40.909 Epilepsy, unspecified, not intractable, without status epilepticus (principal); E03.9 Hypothyroidism, unspecified; Z79.899 Other long term (current) drug therapy; R10.9 Unspecified abdominal pain
CPT/HCPCS: 36000; 36415; 74176; 80053; 81001; 82150; 82805; 83690; 84703; 85025; 96360; 96374; 96375; 99284; J1170; J2270; J2405

== ENCOUNTER 2020-09-03 11:54 | Emergency (ER) | payer OTHER ==
[2020-09-03 12:03] VITALS: PULSE 84; O2SAT 100
[2020-09-03] MEDS ORDERED: TORAdol 30 mg Injection IM ONE (12:08)
[2020-09-03] MEDS ORDERED: Zestril 10 MG PO STA (12:09)
[2020-09-03] MEDS ORDERED: Norflex 60 MG/2 ML IM ONE (12:09)
[2020-09-03] MEDS ORDERED: TORAdol 30 mg Injection ONE (12:24)
[2020-09-03] MEDS ORDERED: Norflex 60 MG/2 ML ONE (12:24)
--- NOTE | 2020-09-03 12:32 | ERPHSYRPT ---
- History of Present Illness Time Seen by Provider: 09/03/20 12:10 Source: patient Exam Limitations: no limitations Patient Subjective Stated Complaint: pt here for headache for 3-4 days now unrelieved by meds at home Triage Nursing Assessment: pt alert,walked in , resp easy, skin w/d/p Physician History: This 35-year-old female came to the emergency room with history of headache for last 4 days which has not been relieved with any of the medication which she takes it at home. Patient has a history of hy hypothyroidism, lupus and bipolar disorder. Patient is on multiple medication for her bipolar disorder and also on insulin for her type 1 diabetes. She states that during her last visit with her test clerk her blood pressure was found to be elevated. Timing/Duration: day(s) (four) Allergies/Adverse Reactions: No Known Drug Allergies Allergy (Verified 10/24/19 12:59) Home Medications: Duloxetine HCl [Cymbalta] 120 mg PO QAM 10/22/17 [History] Ergocalciferol (Vitamin D2) [Vitamin D2] 50,000 unit PO Q7D 10/22/17 [History] Insulin Lispro [Humalog] 100 unit SQ ACHS 10/22/17 [History] Trazodone HCl 25 - 50 mg PO HS PRN 10/22/17 [History] Dextroamphetamine/Amphetamine [Adderall 20 mg Tablet] 1 tab PO DAILY 09/28/19 [History] Levothyroxine Sodium 100 Mcg [Synthroid 100 Mcg] 1 tab PO DAILY 09/28/19 [History] Metoclopramide HCl 10 mg [Reglan 10 MG] 1 tab PO TID 09/28/19 [History] Brexpiprazole [Rexulti] 1 ea DAILY 09/03/20 [History] Insulin Lispro [Admelog] 1 unit DAILY 09/03/20 [History] Ondansetron ODT 4 MG [Zofran Odt 4 mg] 1 ea DAILY 09/03/20 [History] Hx Tetanus, Diphtheria Vaccination/Date Given: Yes Hx Influenza Vaccination/Date Given: Yes Hx Pneumococcal Vaccination/Date Given: No Travel Risk - International Travel Have you traveled outside of the country in past 3 weeks: No - Coronavirus Screening Are you exhibiting any of the following symptoms?: No - Vaccine Status Have you recieved a Covid-19 vaccination: No - Review of Systems Constitutional: No Fever, No Chills Eyes: No Symptoms Ears, Nose, & Throat: No Symptoms Respiratory: No Cough, No Dyspnea Cardiac: No Chest Pain, No Edema, No Syncope Abdominal/Gastrointestinal: No Abdominal Pain, No Nausea, No Vomiting, No Diarrhea Genitourinary Symptoms: No Dysuria Musculoskeletal: No Back Pain, No Neck Pain Skin: No Rash Neurological: Headache, No Dizziness, No Focal Weakness, No Sensory Changes Psychological: No Symptoms Endocrine: No Symptoms All Other Systems: Reviewed and Negative - Past Medical History Pertinent Past Medical History: Yes Neurological History: Peripheral Neuropathy, Seizures Cardiac History: Arrhythmia Respiratory History: No Pertinent History Endocrine Medical History: Diabetes Type I Musculoskeletal History: Fibromyalgia GI Medical History: No Pertinent History History: No Pertinent History Other Medical History: Lupus, Grave's Disease - Past Surgical History Past Surgical History: Yes Neuro Surgical History: No Pertinent History Cardiac: No Pertinent History Respiratory: No Pertinent History Gastrointestinal: No Pertinent History Genitourinary: No Pertinent History Musculoskeletal: No Pertinent History Female Surgical History: Section, Tubal Ligation - Social History Smoking Status: Never smoker How long have you smoked: years Exposure to second hand smoke: No Drug Use: marijuana Patient Lives Alone: No - Female History Hx Last Menstrual Period: week ago Hx Now: No - Nursing Vital Signs Nursing Vital Signs: Initial Vital Signs Temperature 97.5 F 09/03/20 12:00 Pulse Rate 84 09/03/20 12:00 Respiratory Rate 18 09/03/20 12:00 Blood Pressure 165/107 09/03/20 12:00 O2 Sat by Pulse Oximetry 100 09/03/20 12:00 Pain Scale Pain Intensity 10 - Physical Exam General Appearance: no apparent distress Eye Exam: PERRL/EOMI Ears, Nose, Throat Exam: normal ENT inspection, moist mucous membranes Neck Exam: normal inspection, supple, full range of motion, No meningismus Respiratory Exam: normal breath sounds, lungs clear Cardiovascular Exam: regular rate/rhythm, normal heart sounds Gastrointestinal/Abdominal Exam: soft, No tenderness, No distention Back Exam: normal inspection, normal range of motion Mental Status Exam: alert, oriented x 3, cooperative caretaker grounds Exam: normal speech, PERRL, No facial droop Coordination/Gait Exam: normal cerebellar function Motor/Sensory Exam: no motor deficit, no sensory deficit Skin Exam: normal color, warm, dry, No rash SpO2: 100 - Course Nursing assessment & vital signs reviewed: Yes Ordered Tests: Medication Summary Discontinued Medications Generic Name Dose Route Start Last Admin Trade Name Ascencion PRN Reason Stop Dose Admin Ketorolac Tromethamine 60 mg 09/03/20 12:08 09/03/20 12:26 Toradol 30 Mg Injection IM 09/03/20 12:09 60 mg STAT ONE Administration Ketorolac Tromethamine Confirm 09/03/20 12:24 Toradol 30 Mg Injection Administered 09/03/20 12:25 Dose 30 mg .ROUTE .STK-MED ONE Lisinopril 10 mg 09/03/20 12:09 Zestril 10 Mg PO 09/03/20 12:10 STAT STA Orphenadrine Citrate 60 mg 09/03/20 12:09 09/03/20 12:28 Norflex 60 Mg/2 Ml IM 09/03/20 12:10 60 mg STAT ONE Administration Orphenadrine Citrate Confirm 09/03/20 12:24 Norflex 60 Mg/2 Ml Administered 09/03/20 12:25 Dose 60 mg .ROUTE .STK-MED ONE - Progress Progress: improved Air Movement: good Blood Culture(s) Obtained: No Antibiotics given: No Counseled pt/family regarding: diagnosis, need for follow-up - Departure Departure Disposition: Home Clinical Impression: Headache above the eye region, History of lupus Hypertension Qualifiers: Hypertension type: other secondary hypertension Qualified Code(s): I15.8 - Other secondary hypertension Condition: Stable Critical Care Time: Yes Critical Care Time(excluding separately billable procedures): Critical 30-74 mins Referrals: IRENE CARR [NON-STAFF PHY W/O PRIVILEGES] - Instructions: Headache, Adult (DC), High Blood Pressure (DC) Additional Instructions: JACKELYNASHA LAMA was seen on 09/03/20 n the Emergency Room. At that time you were treated for an emergent condition, during your visit Laboratory, Radiology and/or other procedures may have been ordered. It is very important that you follow-up with your Primary Care Physician NO FAMILY DOCTOR within the next 24- 48 hours to review your Emergency Room visit and the final results of testing that was ordered. Some test results such as Urine Cultures, Blood Cultures, and other cultures if ordered will not be finalized for 24-48 hours. If you do not have a Primary Care Provider please call the medical records department at [phone] ext [phone] to obtain a copy of your results or you may sign into our patient portal to obtain these results by visiting us @ [email or web address] and completing the following steps: 1. Click on the Patient Portal link 2. Click the Patient Self Enrollment Link to complete the enrollment form and entering your 3. Once the enrollment form is completed you will receive an email with a temporary ID and password at the email address you provided. 4. Next choose a user name and password. Your user name must be at least 4 characters long and your password must be at least 4 characters long. 5. Choose a security question from the list and provide your answer to the question. If you already have signed into the Health Portal you may access your Health Care Information 29/10 by the following steps: 1. Login to our website @ [email or web address] 2. Enter your original user name and password. FAQS The [facility] Health Portal is an online tool that contains your Lab Results, Radiology Reports, Visit History, Discharge Instructions and Health Summary Lab and Radiology Results will not be available for 72 hours on the portal. The Portal is a secure site, passwords are encryted and URLs are re-written so they cannot be copied and pasted. You and authorized family members are the only ones who can access your Portal. Also there is a timeout feature that protects your information if you leave the Portal page open. If you have technical difficulty please use the Contact Us link on the page this will allow you to submit any questions you have regarding the Portal or you may contact the Medical Record Department at [phone]. Discharge/Care Plan ASHA HAYDEN was seen on 09/03/20 in the Emergency Room. The patient was counseled regarding Diagnosis,Lab results, Imaging studies, need for follow up and when to return to the Emergency Room. Prescriptions given: Discharge Note I have spoken with the patient and/or caregivers. I have explained the patient's condition, diagnosis and treatment plan based on the information available to me at this time. I have answered the patient's and/or caregiver's questions and addressed any concerns. The patient and/or caregivers have as good understanding of the patient's diagnosis, condition and treatment plan as can be expected at this point. The vital signs have been stable. The patient's condition is stable and appropriate for discharge from the emergency department. The patient will pursue further outpatient evaluation with the primary care physician or other designated or consulting physician as outlined in the discharge instructions. The patient and/or caregivers are agreeable to this plan of care and follow-up instructions have been explained in detail. The patient and/or caregivers have received these instruction. The patient/and or caregivers are aware that any significant change in condition or worsening of symptoms should prompt an immediate return to this or the closest emergency department or call 911. Prescriptions: Lisinopril 5 mg [Zestril 5 MG] 5 mg PO DAILY #30 tablet
[2020-09-03 13:24] VITALS: BP 143/87
== END 2020-09-03 13:40 | disposition home or self-care (01) ==
LOC: ED 11:54
DX: R51.9 Headache, unspecified (principal); M32.14 Glomerular disease in systemic lupus erythematosus; I10 Essential (primary) hypertension
CPT/HCPCS: 96372; 99284; 99291; J1885; J2360; A9270-GY